=== PATIENT | male | born 1935 | race Hispanic/Latino ===

== ENCOUNTER 2018-12-20 10:08 | Inpatient (IN) | payer MEDICARE, MEDICAID ==
[2018-12-20] MEDS ORDERED: Morphine 4 MG/ML VIAL ONE ×2 (10:27→12:17)
[2018-12-20] MEDS ORDERED: Ondansetron PF 4 MG/2 ML Vial ONE (10:27)
[2018-12-20 10:41] LABS: #Monocytes 0.9 thou/uL (0.11-0.59); #Neutrophils 14.3 thou/uL (1.40-6.50); %Basophils 0.1 % (0.0-1.0); %Eosinophils 0.1 % (0.0-10.0); %Monocytes 5.2 % (0.0-10.0); %Neutrophils 88.6 % (42.0-75.0); Hemoglobin 14.1 g/dL (14.0-18.0); Mean Corpuscular HGB CONC 33.7 g/dL (32.0-36.0); Mean Corpuscular Hemoglobin 30.5 pg (27.0-31.0); Mean Corpuscular Volume 90.6 fL (78.0-98.0); Mean Platelet Volume 6.5 fL (7.4-10.4); Platelet Count 467 thou/uL (130-400); RBC Distribution Width 12.8 % (11.5-14.5); Red Blood Cell (RBC) Count 4.64 mill/uL (4.70-6.10); White Blood Cell (WBC) Count 16.1 thou/uL (4.8-10.8)
[2018-12-20 11:08] LABS: ALT (SGPT) 9 U/L (8-55); AST (SGOT) 23 U/L (5-34); Albumin 3.2 g/dL (3.4-4.8); Alkaline Phosphatase 107 U/L (40-150); Anion Gap 18 mmol/L (10-20); BUN (Urea Nitrogen) 88 mg/dL (8.4-25.7); Bilirubin, Total 0.5 mg/dL (0.2-1.2); Calc. Creatinine Clearance 0 mL/min (70-130); Calcium 9.7 mg/dL (7.8-10.44); Carbon Dioxide 23 mmol/L (23-31); Chloride 101 mmol/L (98-107); Estimated GFR-MDRD 22; Globulin 3.6 g/dL (2.4-3.5); Glucose 149 mg/dL (83-110); Lipase 76 U/L (8-78); Protein, Total 6.8 g/dL (5.8-8.1); Sodium 137 mmol/L (136-145)
--- NOTE | 2018-12-20 12:07 | CT ---
CT ABDOMEN WITHOUT CONTRAST: CT PELVIS WITHOUT CONTRAST: HISTORY: Rectal bleeding. COMPARISON: 12/04/2014 FINDINGS: ABDOMEN: Dependent atelectatic changes. Limited evaluation of the solid organs by the lack of IV co ntrast. Grossly no solid organ abnormality. Bilaterally no obstructive uropathy. Exophytic, simple cyst emanating from the posterior aspect of t he left kidney measuring 6.5 x 5.2 cm. 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 There is a mixed attenuation mass left lower quadrant, incompletely evaluated. Mass measures 14.8 x 10.3 cm. Etiology of this mass is uncertain. Absence of IV and oral contrast limits evaluation. No gastrohepatic, retrocrural, or periportal lymphadenopathy. There is complex perihepatic and peris plenic fluid. Complex fluid tracks along both paracolic gutters and is noted in the abdominal mesentery. Limited evaluation of the alimentary canal by the lack of contrast. No evidence of high- grade bowel obstruction. Ileocecal junction is normal. Suggestion of a normal caliber appendix of the cecal apex. Scattered diverticulosis. No diverticulitis. PELVIS: Prostate gland is unremarkable. There is mixed attenuation in the urinary bladder. There i s soft tissue attenuation along the posterior left aspect of the urinary bladder with calcification along the anterior right aspect of the urinary bladder. No pelvic mass, free air, or free fluid. No lytic or blastic lesions in the osseous structures. IMPRESSION: 1. Complex mass in the left hemiabdomen of uncertain etiology. There is complex fluid and thickenin g of the mesentery, suggesting mesenteric seeding/mesenteric carcinomatosis. 2. Calcification and isodensity within the urinary bladder, worrisome for a neoplastic process until proven otherwise. 3. Further evaluation with an abdomen and pelvis CT utilizing oral and IV contrast is recommended. Transcribed Date/Time: 12/20/2018 12:29 PM
[2018-12-20 12:42] LABS: Bilirubin Negative (Negative); Blood, Urine 2+ (Negative); Clarity Turbid (Clear); Glucose, Urine (Dipstick) Normal (Negative); Leukocyte 25 Leu/uL (Negative); Nitrite Negative (Negative); Protein, Urine (Dipstick) 50 mg/dL (Neg-Trace); RBC/HPF Greater than 50 HPF (0-3); Squamous Epithelial 0-3 HPF (0-3); Urobilinogen Normal mg/dL (Less than 2)
[2018-12-20] MEDS ORDERED: Ondansetron PF 4 MG/2 ML Vial IVP PRN (12:44)
[2018-12-20] MEDS ORDERED: Ondansetron ODT 4 MG TAB SL PRN (12:44)
[2018-12-20 12:49] LABS: Bacteria/HPF 3+ HPF (None Seen); Sperm/HPF Rare HPF (None Seen)
--- NOTE | 2018-12-20 12:58 | PDOC.FPRHP ---
- History of Present Illness Chief Complaint: Rectal bleeding, abdominal pain History of Present Illness: 83yo gentle with h/o throat cancer and DMII presents with c/c of rectal bleeding and abdominal pain x1 day. Reports first having blood in stool yesterday, mix of dark red and bright red in the stool as well as bright red blood on the toilet paper. He has had associated diarrhea over the past 24 hours as well as nausea and a few episodes of non-bloody vomiting. Endorses a burning pain per rectum with defication as well as a constant LLQ to suprapubic pain. He has had decreased PO intake due to his radiation for throat cancer, but has experience even more reduced PO intake over past few days. Denies CP, SOB, burning with urination or hesitation. Does endorse chronic urinary frequency. He is followed by Dr. Nunes for radiation for his throat cancer. Currently on day 19 of radiation. Diagnosed in 2019 per patient. ED Course: In he ED, he was afebrile and initially tachy to 114. HR decreased to 100 with 1L NS. Given 4mg morphine x2 for pain and Zofran 8mg IV for nausea with control of sxs. BCx and UCx were drawn. Type and screen, and initial labs taken. - Allergies/Adverse Reactions Allergies Allergy/AdvReac Type Severity Reaction Status Date / Time No Known Allergies Allergy Verified 12/04/14 03:14 - Home Medications Medication Instructions Recorded Confirmed Type Glimepiride 2 mg PO QAM- 12/04/14 12/20/18 History metFORMIN HCl 1,000 mg PO BID- 12/04/14 12/20/18 History - History PMHx: DMII, Throat Cancer - currently undergoing radiation therapy - Dr. Nunes PSHx: Cholecystectomy, Appendectomy, TURP/Prostate resection, Colonoscopy 5 years ago with polyp removal. FHx: Noncontributory. No Family history of cancers. Social: Smoked in 20s only for 2 years, denies any alcohol or illicit drug use. Lives in [place], [place] with . - Review of Systems General: reports: weight/appetite/sleep changes. denies: fever/chills, night sweats ENT: denies: nasal congestion, rhinorrhea Respiratory: denies: cough, shortness of breath, exercise intolerance Cardiovascular: denies: chest pain, palpitation, edema, paroxysmal nocturnal dyspnea, orthopnea Gastrointestinal: reports: nausea, vomiting, abdominal pain, GI bleeding. denies: constipation Genitourinary: denies: incontinence, dysuria, polyuria Skin: denies: rashes, lesions, jaundice Musculoskeletal: denies: pain, tenderness, stiffness Neurological: reports: other (Burning sensation of BL LE - chronic). denies: numbness, syncope, seizure Psychological: denies: anxiety, depression - Vital signs BP: [130/81] HR: [105] RR: [16] Tmax: [97.8] Pox: [97]% on [RA] Wt: [83kg] - Physical Exam Constitutional: NAD, awake, alert and oriented, well developed HEENT: EOMI, grossly normal vision, grossly normal hearing Neck: supple Heart: RRR, normal S1/S2, pulses present -Heart: 2/6 systolic ejection murmur - states this is has been present for many years Lungs: CTAB, no respiratory distress, good air movement, no rales/rhonchi, no wheezing -Abdomen: Large left abdominal mass taken up most of the left upper and lower quadrants. TTP along lower border of mass near LLQ/suprapubic region. Dullness to percussion over mass, but tympanic on right of abdomen. No fluid wave. Decreased bowel sounds throughout. Neurological: no focal deficit -Neurological: Neuropathic burning sensation in BL LE, chronic in nature. Skin: no rash/lesions Heme/Lymphatic: no unusual bruising or bleeding Psychiatric: normal mood and affect FMR H&P: Results - Labs Result Diagrams: 12/20/18 10:27 12/20/18 10:27 Lab results: WBC 16.1 thou/uL (4.8-10.8) H 12/20/18 10:27 Hgb 14.1 g/dL (14.0-18.0) 12/20/18 10:27 Hct 42.0 % (42.0-52.0) 12/20/18 10:27 MCV 90.6 fL (78.0-98.0) 12/20/18 10:27 Plt Count 467 thou/uL (130-400) H 12/20/18 10:27 Neutrophils % 88.6 % (42.0-75.0) H 12/20/18 10:27 Sodium 137 mmol/L (136-145) 12/20/18 10:27 Potassium 5.0 mmol/L (3.5-5.1) 12/20/18 10:27 Chloride 101 mmol/L (98-107) 12/20/18 10:27 Carbon Dioxide 23 mmol/L (23-31) 12/20/18 10:27 BUN 88 mg/dL (8.4-25.7) H 12/20/18 10:27 Creatinine 2.73 mg/dL (0.7-1.3) H 12/20/18 10:27 Glucose 149 mg/dL (83-110) H 12/20/18 10:27 Lactic Acid 3.8 mmol/L (0.5-2.2) H 12/20/18 10:27 Calcium 9.7 mg/dL (7.8-10.44) 12/20/18 10:27 Total Bilirubin 0.5 mg/dL (0.2-1.2) 12/20/18 10:27 AST 23 U/L (5-34) 12/20/18 10:27 ALT 9 U/L (8-55) 12/20/18 10:27 Alkaline Phosphatase 107 U/L (40-150) 12/20/18 10:27 B-Natriuretic Peptide 105.9 pg/mL (0-100) H 12/20/18 10:27 Serum Total Protein 6.8 g/dL (5.8-8.1) 12/20/18 10:27 Albumin 3.2 g/dL (3.4-4.8) L 12/20/18 10:27 Lipase 76 U/L (8-78) 12/20/18 10:27 Urine Ketones Negative mg/dL (Negative) 12/20/18 12:23 Urine Blood 2+ (Negative) A 12/20/18 12:23 Urine Nitrite Negative (Negative) 12/20/18 12:23 Ur Leukocyte Esterase 25 Hany/uL (Negative) 12/20/18 12:23 Urine RBC Greater than 50 HPF (0-3) A 12/20/18 12:23 Urine WBC 11-20 HPF (0-3) A 12/20/18 12:23 Ur Squamous Epith Cells 0-3 HPF (0-3) 12/20/18 12:23 Urine Bacteria 3+ HPF (None Seen) A 12/20/18 12:23 - Radiology Interpretation CT scan - abdomen Status: image reviewed by me, report reviewed by me (Large [id number] left abdominal complex mass. Complex fluid, suggestive mesenteric seeding. Calcificated mass in bladder concerning for neoplasm.) FMR H&P: A/P - Problem List (1) Abdominal mass Current Visit: No Status: Acute Code(s): R19.00 - INTRA-ABD AND PELVIC SWELLING, MASS AND LUMP, UNSP SITE Qualifiers: Abdominal location: left lower quadrant Qualified Code(s): R19.04 - Left lower quadrant abdominal swelling, mass and lump (2) LORRIE (acute kidney injury) Current Visit: No Status: Acute Code(s): N17.9 - ACUTE KIDNEY FAILURE, UNSPECIFIED (3) Diabetes Current Visit: No Status: Acute Code(s): E11.9 - TYPE 2 DIABETES MELLITUS WITHOUT COMPLICATIONS Qualifiers: Diabetes mellitus type: type 2 Diabetes mellitus termite exterminator helper insulin use: without fdc use Diabetes mellitus complication status: with neurologic complications Diabetes mellitus complication detail: with polyneuropathy Qualified Code(s): E11.42 - Type 2 diabetes mellitus with diabetic polyneuropathy (4) Melena Current Visit: No Status: Acute Code(s): K92.1 - MELENA (5) Hematochezia Current Visit: No Status: Acute Code(s): K92.1 - MELENA (6) Throat cancer Current Visit: No Status: Chronic Code(s): C14.0 - MALIGNANT NEOPLASM OF PHARYNX, UNSPECIFIED - Plan 83yo male with throat cancer undergoing radiation who presents with melena and hematochezia 1. Melena, hematochezia, Left abdominal mass - 1d history of melena, hematochezia, nausea, vomiting, diarrhea, and LLQ/ rectal pain - CT Abd/Pelvis - [id number] left hemiabdominal complex mass, Complex fluid and thickening of mesentery suggesting mesenteric seeding/carcinomatosis. - H/H and Vitals Stable. Will monitor. Repeat H/H at 2000 and again in AM - GI consulted from ED, place on clear liquids with bowel prep and NPO overnight. Plan for colonoscopy and EGD in AM, appreciate recs - Will consult Onc, appreciate recs - Consulted Palliative care for assistance with advance directives and goals of care, appreciate recs - Will provide morphine 4mg prn pain and zofran 8mg prn nausea 2. Bladder mass - CT Abd/Pelvis - Calcification and isodensity within urinary bladder, worrisome for neoplastic process - Pending GI evaluation and endoscopy in AM. Consider Urology consult if warranted. 3. LORRIE vs CKD - Cr was 0.82 in 2014, Cr 2.73, BUN 88. BUN/Cr >20, likely prerenal LORRIE - Provide gently hydration with LR @ 120cc/hr - Mg and Phos Pending. Recheck CMP in AM 4. Sepsis due to Suspected UTI - WBC 16, LA 3.8. Will Trend. - UA with 3+ Bacteria and 11-20 WBC. Will start Rocephin 1g q24h. - UCx and BCx Pending 3. DM II with peripheral neuropathy - Hold home metformin and glimepiride - Diabetic hyperglycemic protocol with Mild SS insulin and ACHS accuchecks. Will continue to monitor - Will start on Gabapentin 300mg BID for neuropathic pain 4. Throat Cancer - Tx by Dr. Nunes. Will consult Hem/Onc for further recs Diet: Clear liquids, NPO at midnight VTE: SCDs Code: Full. Spoke with pt regarding code status and goals of care. He wishes to be full code, but states he would "not want to live as a vegetable." Stated he should share these wishes with or designated a MPOA and place them in writing with advanced directive. Palliative Care consulted for assistance. Disposition/LOS: Admit to medical floor. Pending further workup by GI, Onc, and possibly urology. Monitor clinical status and kidney function. Anticipate hospitalization 3-5days. FMR H&P: Upper Level - Pertinent history I scribed for the information technology intern as the HPI was done. I made any edits as I saw fit above. - Pertinent findings Pt has large palpable left sided abdomen mass. - Plan Date/Time: 12/20/18 1258 I, [Rodrick Oseguera, PGY-3], have evaluated this patient and agree with findings/ plan as outlined by information technology intern resident. Pertinent changes/additions are listed here. -With signs of UTI infection. If lactic acid doesn't improve may consider intraabdominal process for infection and consider switch in abx regimen.
[2018-12-20] MEDS ORDERED: GoLYTELY 4,000 ml Bottle PO SCH (14:00)
[2018-12-20] MEDS ORDERED: Morphine 2 MG/ML SYRINGE SLOW IVP PRN (14:09)
[2018-12-20] MEDS ORDERED: Dextrose 5 % And 0.9 % NaCl 1,000 ML IV SCH (14:15)
[2018-12-20 14:17] VITALS: BMI 32.3
[2018-12-20 14:40] LABS: Lactic Acid 3.2 mmol/L (0.5-2.2)
[2018-12-20] MEDS ORDERED: Acetaminophen 325 MG TAB PO PRN (14:52)
[2018-12-20] MEDS ORDERED: Dextrose 50% Abboject 50 ML SYRINGE SLOW IVP PRN (14:52)
[2018-12-20] MEDS ORDERED: Dextrose 5% in Water 1,000 ML IV PRN (14:52)
[2018-12-20] MEDS ORDERED: HumaLOG 300 UNITS/3 ML VIAL SC PRN (14:52)
[2018-12-20] MEDS ORDERED: Ondansetron HCl/PF 8 MG in Sodium Chloride 0.9% 50 ML IVPB PRN (14:52)
[2018-12-20] MEDS ORDERED: Calcium Carbonate 500 MG ChewTAB PO PRN (14:52)
[2018-12-20 15:18] LABS: Magnesium 3.2 mg/dL (1.6-2.6); Phosphorus 6.1 mg/dL (2.3-4.7)
[2018-12-20] MEDS: cefTRIAXone\\ROCEPHIN 1 GM in Sodium Chloride 0.9% 100 ML IVPB SCH (15:27)
[2018-12-20] MEDS: Lactated Ringer's 1,000 ML IV SCH ×2 (15:27→23:31)
--- NOTE | 2018-12-20 16:16 | HP ---
I have examined the patient. I have discussed the case with Dr. Rk Garg and agreed with his assessment and plan. HISTORY OF PRESENT ILLNESS: Briefly, Mr. Coleman is a pleasant 83-year-old man with a history of "throat cancer." Yesterday, he noticed some bright red blood in a bowel movement. His bowel movement at that time was quite painful. He went to an outlying ER and eventually ended up here for further level of care. On physical exam, he is noted to have a very large left middle quadrant abdominal mass and slight degree of abdominal distention. He is in some discomfort, but not excruciating pain. Yesterday was the first time he had ever noticed blood in his bowel movements. He relates that he had a colonoscopy approximately five years ago with removal of "polyps." PHYSICAL EXAMINATION: VITAL SIGNS: His blood pressure is 124/73. His pulse rate is 105, respirations are 20. His O2 saturation is 94% on room air. GENERAL: He is sleepy, but otherwise in no distress. He does complain of some abdominal pain. He is oriented. HEAD: Normocephalic. NECK: Supple. CARDIAC: Heart rhythm is regular. S4 gallop. No murmur or rub noted. LUNGS: Breath sounds are diminished, but clear without rales or wheezes. He does not demonstrate any respiratory distress. ABDOMEN: Appears slightly distended. There is a large mass palpable in the left middle to left upper quadrant. There is no rebound or rigidity. EXTREMITIES: No focal deficits. LABORATORY DATA: Urinalysis shows greater than 50 rbc's per high-power field and 11 to 20 wbc's. CBC; white count is 16,100, hemoglobin 14.1, hematocrit 42.0 with an MCV of 90.6, platelets elevated at 467,000 and differential is normal with a slight left shift. Chemistries; sodium 137, potassium 5, chloride 101, bicarb 23, BUN is 88 with creatinine of 2.73, glucose is 149. Lactic acid is 3.8. Liver enzymes are normal. The abdominal pelvic CT done without contrast demonstrates a complex mass in the left niurka-abdomen of uncertain etiology. There is complex fluid and thickening of the mesentery suggesting mesenteric seeding and mesenteric carcinomatosis. There is also calcification and isodensity in the urinary bladder, which is worrisome for a neoplastic process. ASSESSMENT: The patient has also been seen by the GI Service and we will schedule him for colonoscopy tomorrow. He may eventually need cystoscopy as well. PLAN: Admit, IV fluids, pain control. Further studies as mentioned above. This is likely a colon malignancy with possibly a neoplastic process as well in the bladder. Job ID: [id number]
[2018-12-20] MEDS: Gabapentin 300 MG CAP PO SCH (19:44)
--- NOTE | 2018-12-20 19:48 | CON ---
DATE OF CONSULTATION: 12/20/2018 REASON FOR CONSULTATION: Hematochezia, abnormal GI imaging. CONSULTING PHYSICIAN: Dr. Breonna Rae. HISTORY OF PRESENT ILLNESS: The patient is an 83-year-old male with past medical history of throat cancer, status post radiation therapy, benign prostatic hyperplasia, and diabetes, presenting with complaints of abdominal pain. He states that he was recently being evaluated for his throat cancer and had undergone approximately 9 cycles of radiation therapy per Dr. Nunes as an outpatient. However, yesterday, he developed increased left lower quadrant abdominal pain that he characterized as a burning type sensation, would radiate to the suprapubic region, was constant with waxing/waning severity, and reached a severity of 6 to 7/10. The pain was worse with bending over and having a bowel movement, better with inactivity or not moving. This was also associated with increased diarrhea, having approximately 5 liquid bowel movements over the last 24 hours without any difficulty with defecation. With the onset of the liquid bowel movements, he also endorses hematochezia, characterized as maroon-colored stool that is present on both the toilet paper and in the toilet. This is never happened before, but he did have a colonoscopy approximately 5 years ago with polyps removed at that time (unknown size and histology). He also currently endorses increased dysphagia, primarily to solid foods, but in relation to his throat cancer. Otherwise, he denies any nausea, vomiting, fevers, chills, hematemesis, melena, odynophagia, or weight loss. REVIEW OF SYSTEMS: A 10-category review of systems was obtained with all responses negative except for the pertinent positives as listed in HPI. PAST MEDICAL HISTORY: As per HPI. PAST SURGICAL HISTORY: Colonoscopy (5 years ago), cholecystectomy, appendectomy, and TURP. FAMILY HISTORY: Denies any GI malignancies. SOCIAL HISTORY: Currently, denies any tobacco, alcohol, or illicit drug use. Did have increased tobacco and alcohol use in the past, greater than 20 years ago. MEDICATIONS: Outpatient medications, reviewed. ALLERGIES: NO KNOWN DRUG ALLERGIES. PHYSICAL EXAMINATION: VITAL SIGNS: Temperature 97.8, pulse 105, blood pressure 130/81, respiratory rate 16, saturating 97% on room air. GENERAL: The patient is lying in bed, in no acute distress, alert and oriented x4. HEENT: Normocephalic and atraumatic. NECK: Supple. No JVD or scleral icterus noted. Hoarseness of voice noted during the examination. CARDIOVASCULAR: 3/6 systolic murmur best heard at the right upper sternal border, but present in all auscultated cardiac negro without discernible gallops or rubs. RESPIRATORY: Clear to auscultation bilaterally with no discernible wheezes or rales. ABDOMEN: Normoactive bowel sounds. Soft on the right niurka abdomen, but a dense mass was palpated on the left niurka abdomen occupying primarily the left upper quadrant and left mid. EXTREMITIES: No cyanosis, clubbing, or edema. LABORATORY DATA: CBC with a white blood cell count of 16.1, hemoglobin 14.1, hematocrit 42, platelets 467. Chemistry with a sodium of 137, potassium 5, chloride 101, CO2 of 23, BUN 88, creatinine 2.73, glucose 149, AST 23, ALT 9, alkaline phosphatase 107, total bilirubin 0.5, lactic acid 3.8, BNP 105, albumin 3.2. IMAGING DATA: CT of the abdomen and pelvis was obtained on December 20, 2018, which showed evidence of edema with omental caking that was associated with a 14.8 x 10.3 cm left lower quadrant mass. There was also perihepatic and perisplenic fluid noted along with a large calcification within the urinary bladder concerning for neoplasm. ASSESSMENT AND PLAN: The patient is an 83-year-old male with past medical history of head/neck cancer status post radiation therapy, benign prostatic hyperplasia, diabetes, and colonic polyps, presenting with left lower quadrant abdominal pain and abnormal imaging concerning for neoplastic process. 1. Left lower quadrant abdominal pain. a. The patient is presenting with acute onset of left lower quadrant abdominal pain characterized as a burning-type sensation and radiating into the suprapubic region. The pain is constant with waxing/waning severity and reaches a severity of 6 to 7/10. With worsening of this abdominal pain, it prompted him to seek healthcare assistance at [facility] ER. While in the ER, he had a CT scan, which showed a large mass within the left mid and left lower quadrant concerning for neoplastic process. However, further characterization of the mass could not be performed due to the lack of IV or oral contrast during the imaging study secondary to the patient's poor renal function. During the CT scan, he was also noted to have a large calcification within the urinary bladder concerning for neoplastic process from that region. At this point in time, the differential could include a colonic primary neoplasm, bladder primary neoplasm, soft tissue sarcoma, densely packed scar tissue (much less likely). RECOMMENDATIONS: 1. We will place the patient on a clear liquid diet today with GoLYTELY prep in anticipation for EGD and colonoscopy tomorrow. 2. We will proceed with both EGD and colonoscopy for intraluminal evaluation of the upper GI tract that might be contributing to his maroon-colored stools. Colonoscopy would give intraluminal evaluation for possible colonic neoplasm. 3. We will continue to trend hemoglobin and hematocrit and transfuse as necessary to maintain a hemoglobin and hematocrit of 7/21. 4. We will continue to monitor clinically for signs of active GI bleeding. 5. Further recommendations to follow endoscopy tomorrow. We will continue to follow. Please call with any questions. Job ID: [id number]
[2018-12-21 01:06] LABS: Lactic Acid 2.8 mmol/L (0.5-2.2)
--- NOTE | 2018-12-21 05:45 | PDOC.FM ---
- Subjective Subjective: Pt doing well this morning, no acute events overnight. Pain much improved with gabapentin per patient, he was able to rest well overnight. Tolerating the GI prep and having multiple watery, loose stools this morning. No melena or hematochezia. No pain with defecation or urination. Still endorses LLQ soreness and has to lie on his left side to alleviate the pain. Denies CP, SOB, fever/ chills. Mild nausea but no vomiting. Anticipating endoscopy today. Spoke with and awaiting Palliative care team to assist in advanced directives. - Objective MAR Reviewed: Yes Vital Signs & Weight: Vital Signs (12 hours) Temp Pulse Resp BP Pulse Ox 12/21/18 04:00 97.8 F 101 H 20 129/80 92 L 12/21/18 00:00 97.7 F 98 20 128/82 95 12/20/18 21:25 94 L 12/20/18 20:00 97.6 F 102 H 23 H 113/68 94 L Weight Weight 80.286 kg I&O: 12/19/18 12/20/18 12/21/18 06:59 06:59 06:59 Intake Total 360 Balance 360 Result Diagrams: 12/21/18 09:55 12/21/18 09:55 Phys Exam - Physical Examination Constitutional: NAD (lying on left side to avoid pain.) HEENT: moist MMs horseness Neck: no nodes, supple Respiratory: no wheezing, no rales, no rhonchi, clear to auscultation bilateral Cardiovascular: RRR, no rub 2/6 systolic ejection murmur Gastrointestinal: positive bowel sounds Large hard mass left abdomen, mild TTP of lower mass border. Distented Musculoskeletal: no edema Neurological: non-focal, moves all 4 limbs Psychiatric: normal affect, A&O x 3 Dx/Plan (1) Abdominal mass Code(s): R19.00 - INTRA-ABD AND PELVIC SWELLING, MASS AND LUMP, UNSP SITE Status: Acute Qualifiers: Abdominal location: left lower quadrant Qualified Code(s): R19.04 - Left lower quadrant abdominal swelling, mass and lump (2) LORRIE (acute kidney injury) Code(s): N17.9 - ACUTE KIDNEY FAILURE, UNSPECIFIED Status: Acute (3) Diabetes Code(s): E11.9 - TYPE 2 DIABETES MELLITUS WITHOUT COMPLICATIONS Status: Acute Qualifiers: Diabetes mellitus type: type 2 Diabetes mellitus fci insulin use: without fci use Diabetes mellitus complication status: with neurologic complications Diabetes mellitus complication detail: with polyneuropathy Qualified Code(s): E11.42 - Type 2 diabetes mellitus with diabetic polyneuropathy (4) Melena Code(s): K92.1 - MELENA Status: Acute (5) Hematochezia Code(s): K92.1 - MELENA Status: Acute (6) Throat cancer Code(s): C14.0 - MALIGNANT NEOPLASM OF PHARYNX, UNSPECIFIED Status: Chronic (7) Hypermagnesemia Code(s): E83.41 - HYPERMAGNESEMIA Status: Acute (8) Hyperphosphatemia Code(s): E83.39 - OTHER DISORDERS OF PHOSPHORUS METABOLISM Status: Acute - Plan Plan: 83yo male with throat cancer undergoing radiation who presents with melena and hematochezia found to have multiple abdominal and pelvic masses concerning for malignancy. 1. Large left abdominal mass, mesenteric seeding, and bladder calcification concerning for malignancy - 1d history of melena, hematochezia, nausea, vomiting, diarrhea, and LLQ/ rectal pain - CT Abd/Pelvis - [id number] left hemiabdominal complex mass, Complex fluid and thickening of mesentery suggesting mesenteric seeding/carcinomatosis. - VSS. Hb 14 -> 13.2 - GI consulted, Dr. Estrada, place on clear liquids with bowel prep and NPO. Plan for colonoscopy and EGD this morning, appreciate recs - Onc consulted, Dr. Farris, rec continued GI workup and possible urology consult for cysto and bladder mass biopsy, will follow along, appreciate recs - Consulted Palliative care for assistance with advance directives and goals of care, appreciate recs - Morphine 4mg prn pain and zofran 8mg prn nausea 2. Bladder mass - CT Abd/Pelvis - Calcification and isodensity within urinary bladder, worrisome for neoplastic process - Pending GI evaluation and endoscopy in this morning. Consider Urology consult. 3. LORRIE vs CKD - Cr was 0.82 in 2014, Cr 2.73, BUN 88. BUN/Cr >20, likely prerenal LORRIE. CMP pending this AM. - Providing gently hydration with LR @ 120cc/hr - Mg 3.2, Phos 6.1. Will check EKG. - Trend lytes daily 4. Sepsis due to Suspected UTI - WBC 16 -> 12.8, LA 3.8 -> 2.8. - UA with 3+ Bacteria and 11-20 WBC. Rocephin 1g q24h Day 2. - UCx and BCx Pending 3. DM II with peripheral neuropathy - Hold home metformin and glimepiride - Diabetic hyperglycemic protocol with Mild SS insulin and ACHS accuchecks. BG stable, will continue to monitor. - Gabapentin 300mg BID for neuropathic pain. Pain much improved. 4. Throat Cancer - Tx by Dr. Nunes.Hem/Onc on board, appreciate recs. Diet: NPO for endoscopy today VTE: SCDs Code: Full. Spoke with pt regarding code status and goals of care. He wishes to be full code, but states he would "not want to live as a vegetable." Stated he should share these wishes with or designated a MPOA and place in writing with advanced directive. Palliative Care consulted for assistance. Disposition/LOS: Pending further workup by GI, Onc, and possibly urology. Monitor clinical status and renal function. Anticipate hospitalization 3-5days.
[2018-12-21] MEDS: Lactated Ringer's 1,000 ML IV SCH ×3 (06:52→22:39)
[2018-12-21] MEDS: Gabapentin 300 MG CAP PO SCH ×2 (08:50→20:27)
[2018-12-21 10:12] LABS: #Lymphocytes 0.9 thou/uL (1.20-3.40); #Monocytes 0.8 thou/uL (0.11-0.59); #Neutrophils 11.2 thou/uL (1.40-6.50); %Basophils 0.1 % (0.0-1.0); %Eosinophils 0.1 % (0.0-10.0); %Lymphocytes 6.7 % (21.0-51.0); %Monocytes 5.9 % (0.0-10.0); %Neutrophils 87.2 % (42.0-75.0); Hemoglobin 13.2 g/dL (14.0-18.0); Mean Corpuscular Hemoglobin 30.3 pg (27.0-31.0); Mean Corpuscular Volume 91.7 fL (78.0-98.0); Mean Platelet Volume 6.4 fL (7.4-10.4); Platelet Count 409 thou/uL (130-400); RBC Distribution Width 12.9 % (11.5-14.5); Red Blood Cell (RBC) Count 4.35 mill/uL (4.70-6.10); White Blood Cell (WBC) Count 12.8 thou/uL (4.8-10.8)
[2018-12-21 10:36] LABS: ALT (SGPT) 8 U/L (8-55); AST (SGOT) 30 U/L (5-34); Albumin 2.7 g/dL (3.4-4.8); Alkaline Phosphatase 101 U/L (40-150); Anion Gap 19 mmol/L (10-20); BUN (Urea Nitrogen) 81 mg/dL (8.4-25.7); Bilirubin, Total 0.3 mg/dL (0.2-1.2); Calc. Creatinine Clearance 32 mL/min (70-130); Calcium 8.9 mg/dL (7.8-10.44); Carbon Dioxide 19 mmol/L (23-31); Chloride 104 mmol/L (98-107); Estimated GFR-MDRD 32; Globulin 3.1 g/dL (2.4-3.5); Glucose 94 mg/dL (83-110); Potassium 4.4 mmol/L (3.5-5.1); Protein, Total 5.8 g/dL (5.8-8.1); Sodium 138 mmol/L (136-145)
--- NOTE | 2018-12-21 11:22 | PRG ---
DATE OF SERVICE: 12/21/2018 Mr. Coleman is sitting up in bed, undergoing a prep for colonoscopy. He is cheerful, awake, alert, in no distress. He has been seen in consultation by the GI Service. Their recommendations were to prep the patient for EGD and colonoscopy, which hopefully will be done today. EGD performed to evaluate his maroon-colored stools. Colonoscopy of course is recommended for possible colonic neoplasm, which is palpable on physical exam. We will continue to follow with the GI Service and appreciate their input. Job ID: [id number]
[2018-12-21] MEDS ORDERED: Lidocaine 1% PF 5 ML VIAL ONE (11:23)
[2018-12-21] MEDS ORDERED: PROPOFOL 200 MG/20 ML VIAL ONE (11:23)
[2018-12-21] MEDS: cefTRIAXone\\ROCEPHIN 1 GM in Sodium Chloride 0.9% 100 ML IVPB SCH (14:43)
[2018-12-21] MEDS: Morphine 4 MG/ML VIAL SLOW IVP PRN (16:29)
--- NOTE | 2018-12-21 20:43 | OP ---
DATE OF PROCEDURE: 12/21/2018 PROCEDURES PERFORMED: Esophagogastroduodenoscopy with biopsy, colonoscopy with polypectomy. INDICATIONS FOR PROCEDURE: Abnormal GI imaging with a large abdominal mass in the left upper and left lower quadrant, hematochezia. DESCRIPTION OF PROCEDURE: After the risks and benefits of the procedures were explained to the patient including risks of bleeding, infection, perforation, reactions to anesthesia, aspiration, and/or pain, informed consent was obtained. The patient was then taken to the endoscopy suite, where deep sedation was administered via propofol and anesthesia support. Once adequate sedation was achieved, the patient was maneuvered into the left lateral decubitus position with introduction of the standard gastroscope into the mouth and intubation of the esophagus, stomach, and the proximal small intestines with the findings listed below. The patient tolerated this portion of the procedure well with no immediate perioperative complications. Upon conclusion of the procedure, all equipment was removed from the patient and the bed was rotated 180 degrees in anticipation of the colonoscopy. After a digital rectal examination was performed, the standard colonoscope was introduced into the rectum and advanced to the cecum without difficulty. The quality of the prep was initially fair, but converted to a good prep with aggressive irrigation and suctioning. Adequate visualization of the colonic mucosa was achieved. The patient tolerated the procedure well with no immediate perioperative complications. Upon conclusion of the procedure, all equipment was removed from the patient and he was transferred to PACU in satisfactory condition. EGD FINDINGS: Esophagus: Normal-appearing mucosa was seen in the proximal and mid esophagus. There was increased hyperemia as well as some mild luminal narrowing of the gastroesophageal junction without any overt esophageal stricture present. Multiple biopsies were taken from the distal esophagus for evaluation of this finding. Otherwise, there was no evidence of erosions, ulcerations, mass, lesions, or active/recent bleeding. Stomach: Normal-appearing mucosa was seen in the gastric cardia, fundus, body, greater curvature, antrum, and incisura. There was no evidence of erosions, ulcerations, mass, lesions, or active/recent bleeding. Duodenum: Normal-appearing mucosa was seen in both the duodenal bulb and second portion of the duodenum. There was no evidence of erosions, ulcerations, mass, lesions, or active/recent bleeding. IMPRESSION: 1. Mild hyperemia and mild luminal narrowing without stricture formation in the distal esophagus concerning for reflux disease. 2. Otherwise, normal upper endoscopy. COLONOSCOPY FINDINGS: Digital rectal exam, large external hemorrhoids were seen on external examination with the appearance of overlying erythema and a small blood clot overlying one of the larger hemorrhoids. Internal hemorrhoids were palpated on digital rectal exam, but no masses felt. No active bleeding was seen during this portion. COLON FINDINGS: Normal-appearing mucosa was seen at the ileocecal valve, appendiceal orifice, and within the cecum itself. A 5 mm sessile polyp was seen in the ascending colon and completely removed with snare cautery polypectomy. It was retrieved and placed in a specimen jar for evaluation. Normal-appearing mucosa was then seen in the transverse colon and proximal descending colon at approximately 40 to 50 cm past the anal verge. Mild luminal narrowing was encountered, but was easily traversed with the colonoscope. There was no associated erythema or stricture formation or evidence of malignancy in this region. Normal-appearing mucosa was then seen in the sigmoid colon and rectum. Medium-sized internal hemorrhoids were seen on rectal retroflexion. IMPRESSION: 1. 5 mm ascending colon polyp, status post snare cautery polypectomy. 2. Mild luminal narrowing at 40 to 50 cm past the anal verge consistent with extrinsic compression of the colon. 3. Medium-sized internal hemorrhoids and large external hemorrhoids with evidence of recent bleeding (most likely reason for the patient's recent hematochezia). RECOMMENDATIONS: 1. Would ultimately recommend a higher fiber diet given his evidence of bleeding hemorrhoids, although I would hold on this for now given the evidence of extrinsic compression from the abdominal mass. 2. Would consider hemorrhoid cream for these large external hemorrhoids in the meantime. 3. We will consider consultation of General Surgery or Urology Service for further evaluation of possible intra-abdominal malignancy versus bladder malignancy. 4. We will follow up on the biopsy results. Given the lack of obvious intraluminal findings in light of a large abdominal mass, we will sign off at this time given that we have nothing else to offer. Please call with any questions. Job ID: [id number]
--- NOTE | 2018-12-22 05:49 | PDOC.FM ---
- Subjective Subjective: Pt doing well this morning. States he is hungry and thirsty, but is NPO for possible mass biopsy. States abdominal pressure/pain is worse when lying on back and lies on side for relief. No n/v/d/c. No return of melena or hematochezia. Eager for further workup. - Objective MAR Reviewed: Yes Vital Signs & Weight: Vital Signs (12 hours) Temp Pulse Resp BP Pulse Ox 12/22/18 04:00 97.8 F 105 H 16 114/77 94 L 12/21/18 21:19 99 12/21/18 20:00 98.2 F 108 H 16 108/63 99 Weight Weight 80.286 kg I&O: 12/20/18 12/21/18 12/22/18 06:59 06:59 06:59 Intake Total 360 4680 Balance 360 4680 Result Diagrams: 12/22/18 06:18 12/22/18 06:18 Phys Exam - Physical Examination Constitutional: NAD horseness Neck: supple Respiratory: no wheezing, no rales, no rhonchi, clear to auscultation bilateral Cardiovascular: RRR, no rub 2/3 systolic ejection murmur Gastrointestinal: positive bowel sounds hard left abdominal mass, midly TTP along lower border. Musculoskeletal: no edema Neurological: non-focal, moves all 4 limbs Psychiatric: A&O x 3 Dx/Plan (1) Abdominal mass Code(s): R19.00 - INTRA-ABD AND PELVIC SWELLING, MASS AND LUMP, UNSP SITE Status: Acute Qualifiers: Abdominal location: left lower quadrant Qualified Code(s): R19.04 - Left lower quadrant abdominal swelling, mass and lump (2) LORRIE (acute kidney injury) Code(s): N17.9 - ACUTE KIDNEY FAILURE, UNSPECIFIED Status: Acute (3) Diabetes Code(s): E11.9 - TYPE 2 DIABETES MELLITUS WITHOUT COMPLICATIONS Status: Acute Qualifiers: Diabetes mellitus type: type 2 Diabetes mellitus detention insulin use: without detention use Diabetes mellitus complication status: with neurologic complications Diabetes mellitus complication detail: with polyneuropathy Qualified Code(s): E11.42 - Type 2 diabetes mellitus with diabetic polyneuropathy (4) Melena Code(s): K92.1 - MELENA Status: Acute (5) Hematochezia Code(s): K92.1 - MELENA Status: Acute (6) Throat cancer Code(s): C14.0 - MALIGNANT NEOPLASM OF PHARYNX, UNSPECIFIED Status: Chronic (7) Hypermagnesemia Code(s): E83.41 - HYPERMAGNESEMIA Status: Acute (8) Hyperphosphatemia Code(s): E83.39 - OTHER DISORDERS OF PHOSPHORUS METABOLISM Status: Acute - Plan Plan: 83yo male with throat cancer undergoing radiation who presents with melena and hematochezia found to have multiple abdominal and pelvic masses concerning for malignancy. 1. Large left abdominal mass, mesenteric seeding, and bladder calcification concerning for malignancy - 1d history of melena, hematochezia, nausea, vomiting, diarrhea, and LLQ/ rectal pain - CT Abd/Pelvis - [id number] left hemiabdominal complex mass, Complex fluid and thickening of mesentery suggesting mesenteric seeding/carcinomatosis. - VSS. Hb stable. - GI consulted, Dr. Estrada, EGD narrowing of GE junction biopsies taken otherwise normal. [place] 5mm polpy, extensive compression of colon, internal and external hemorrhoids likely source of hematochezia; rec gen surg vs urology for further malignancy work up, appreciate recs - Onc consulted, Dr. Farris, rec continued GI workup and possible urology consult for cysto and bladder mass biopsy, will follow along, appreciate recs - Consulted Palliative care for assistance with advance directives and goals of care, appreciate recs - Morphine 4mg prn pain and zofran 8mg prn nausea - Consulted Gen surg, Dr. Wild who rec IR with CT guided biopsy, spoke with Dr. Rosales and plan for biopsy today. 2. Bladder mass - CT Abd/Pelvis - Calcification and isodensity within urinary bladder, worrisome for neoplastic process - Will consult urology 3. LORRIE vs CKD - Cr was 0.82 in 2015, Cr 2.73 -> 1.83, BUN 88. BUN/Cr >20, likely prerenal LORRIE. - Providing gently hydration with LR @ 120cc/hr - Mg 3.2, Phos 6.1. EKG normal. - Trend lytes daily 4. Sepsis due to Suspected UTI - WBC 16 -> 12.8, LA 3.8 -> 2.8. - UA with 3+ Bacteria and 11-20 WBC. Rocephin 1g q24h Day 3. Willie d/c rocephin. - No UCx obtained, BCx NGTD. 3. DM II with peripheral neuropathy - Hold home metformin and glimepiride - Diabetic hyperglycemic protocol with Mild SS insulin and ACHS accuchecks. BG stable, will continue to monitor. - Gabapentin 300mg BID for neuropathic pain. Pain much improved. 4. Throat Cancer - Tx by Dr. Nunes.Hem/Onc on board, appreciate recs. Notified cancer center of patient being inpt. Diet: NPO for endoscopy today VTE: SCDs Code: Full. Spoke with pt regarding code status and goals of care. He wishes to be full code, but states he would "not want to live as a vegetable." Stated he should share these wishes with or designated a MPOA and place in writing with advanced directive. Palliative Care consulted for assistance. Disposition/LOS: Pending further malignancy workup. Monitor clinical status and renal function. Anticipate hospitalization 3-5days. Addendum - Attending - Attending Attestation Date/Time: 12/22/182013 I personally evaluated the patient and discussed the management with Dr. Katherin Garg at 0940. I agree with the History, Examination, Assessment and Plan documented above with any addition or exceptions noted below. Large abdominal mass- IR guided biopsy of mass. Tachycardia- mild and sinus.continue to monitor LORRIE- improving daily with IVF Bladder calcification- will get urology input as well.
[2018-12-22 07:13] LABS: #Eosinphils 0.1 thou/uL (0.0-0.7); #Lymphocytes 0.7 thou/uL (1.20-3.40); #Monocytes 0.8 thou/uL (0.11-0.59); #Neutrophils 10.7 thou/uL (1.40-6.50); %Basophils 0.2 % (0.0-1.0); %Eosinophils 0.4 % (0.0-10.0); %Lymphocytes 5.6 % (21.0-51.0); %Monocytes 6.3 % (0.0-10.0); %Neutrophils 87.4 % (42.0-75.0); Hemoglobin 12.9 g/dL (14.0-18.0); Mean Corpuscular HGB CONC 32.3 g/dL (32.0-36.0); Mean Corpuscular Hemoglobin 29.4 pg (27.0-31.0); Mean Corpuscular Volume 91.2 fL (78.0-98.0); Mean Platelet Volume 6.8 fL (7.4-10.4); Platelet Count 376 thou/uL (130-400); RBC Distribution Width 13.1 % (11.5-14.5); Red Blood Cell (RBC) Count 4.38 mill/uL (4.70-6.10); White Blood Cell (WBC) Count 12.3 thou/uL (4.8-10.8)
[2018-12-22 07:29] LABS: ALT (SGPT) 10 U/L (8-55); AST (SGOT) 26 U/L (5-34); Albumin 2.6 g/dL (3.4-4.8); Alkaline Phosphatase 96 U/L (40-150); Anion Gap 16 mmol/L (10-20); BUN (Urea Nitrogen) 80 mg/dL (8.4-25.7); Bilirubin, Total 0.4 mg/dL (0.2-1.2); Calc. Creatinine Clearance 35 mL/min (70-130); Calcium 8.9 mg/dL (7.8-10.44); Carbon Dioxide 21 mmol/L (23-31); Chloride 103 mmol/L (98-107); Estimated GFR-MDRD 36; Globulin 2.9 g/dL (2.4-3.5); Glucose 113 mg/dL (83-110); Magnesium 2.5 mg/dL (1.6-2.6); Phosphorus 5.2 mg/dL (2.3-4.7); Potassium 4.5 mmol/L (3.5-5.1); Protein, Total 5.5 g/dL (5.8-8.1); Sodium 135 mmol/L (136-145)
[2018-12-22] MEDS: Lactated Ringer's 1,000 ML IV SCH ×2 (07:49→16:48)
[2018-12-22] MEDS: Gabapentin 300 MG CAP PO SCH ×2 (07:49→21:35)
[2018-12-22 12:22] LABS: INR-International Normal Ratio 1.3; PTT 36.8 SEC (22.9-36.1); Prothrombin Time 15.8 SEC (12.0-14.7)
[2018-12-22] MEDS: Morphine 4 MG/ML VIAL SLOW IVP PRN ×2 (12:27→18:17)
[2018-12-22] MEDS ORDERED: Midazolam HCl 2 mg/2 ml Vial ONE (13:24)
[2018-12-22] MEDS ORDERED: Sodium Bicarbonate 2.5 MEQ/5 ML VIAL ONE (13:24)
[2018-12-22] MEDS ORDERED: Fentanyl 100 MCG/2 ML VIAL ONE (13:24)
--- NOTE | 2018-12-22 14:36 | CT ---
CT-guided biopsy left lower quadrant mass HISTORY: Carcinomatosis. Abdominal mass. FINDINGS: After explaining the procedure and answering all questions, limited CT imaging of the abdom en was performed. Sterile technique, buffered local anesthesia, CT guidance, and a left lower quadrant approach were advance a 17-gauge needle into the large heterogeneous mass in the left side o f the abdomen. At least 4 18-gauge core biopsy specimens were obtained and submitted to Dr. Jerez from pathology. Sp ecimen adequacy was confirmed. Needle removed. Postprocedure imaging shows no evidence of complication. Patient tolerated the procedure well and was returned in unchanged condition. IMPRESSION: Technically successful CT-guided biopsy left abdominal mass. Pathology is pending.
[2018-12-22] MEDS ORDERED: Acetaminophen 500 MG TAB PO PRN (15:15)
--- NOTE | 2018-12-22 18:45 | PDOC.GSCN ---
Surgery Consult: [facility] - Consult details Date: 12/22/18 Time: 18:00 Reason for consult: other (Abdominal mass) Requesting physician: Rk Garg History of present illness: 83 yo male presented to [facility] with a cc of BRBPR and dysphagia. Pt has a history of throat cancer currently undergoing radiation. CT scan on admission demonstrated a large complex left sided abdominal mass. He was admitted by the family medicine team for further evaluation and treatment. He was seen and evaluated by GI and underwent EGD w/biopsy and colonoscopy with polypectomy. Pathology currently pending. Our team was consulted for the abdominal mass and advised CT guided biopsy. Upon my evaluation this evening the patient has undergone biopsy with IR, he is eating dinner and complains of nausea, dysphagia and poor appetite. Pt reports his last BM was 5 hrs ago and described as loose watery stool with dark/old blood when he wiped. He has had a 12lb weight loss over the last four weeks. Surgery Consult: [facility] Source: patient, family Past Medical History: DMII, throat cancer Past Surgical History: Cholecystectomy, appendectomy, TURP, colonoscopy with polypectomy x2 - Past Family History Family history: reviewed and not pertinent - Past Social History Smoking Status: Former smoker Alcohol Use: pt denies any use Drug Use History: pt denies any use Living Situation: Surgery Consult: Exam - Vital signs Vital signs: Vital Signs - Most Recent Temp Pulse Resp BP Pulse Ox 97.8 F 107 H 18 114/69 98 12/22/18 08:00 12/22/18 08:00 12/22/18 08:00 12/22/18 08:00 12/22/18 08:00 - Physical Exam General: no distress, other (Sitting on edge of bed eating) Eye: PERRL Neck: trachea midline Respiratory: clear to auscultation, normal expansion, normal respiratory effort Abdomen: other (abdomen is rotund and mildly firm, nontender no guarding or rigidity, dull to percussion) Hernia: none Integumentary: no rash Musculoskeletal: other (luis x 4) Psychiatric: oriented to time, oriented to person, oriented to place Additional exam: Cardiovascular: RRR 2/6 VENECIA, 2+ pitting edema BLE Surgery Consult: Meds - Medications MAR Reviewed: Yes Medications: Current Medications Acetaminophen (Tylenol) 1,000 mg PO Q4H PRN PRN Reason: Headache/Fever/Mild Pain (1-3) Calcium Carbonate (Tums) 1,000 mg PO Q4H PRN PRN Reason: Heartburn or Indigestion Last Admin: 12/22/18 02:32 Dose: 1,000 mg Dextrose/Water (Dextrose 50%) 25 gm SLOW IVP PRN PRN PRN Reason: Hypoglycemia Gabapentin (Neurontin) 300 mg PO BID [facility] Last Admin: 12/22/18 07:49 Dose: 300 mg Glucagon (Glucagon) 1 mg IM PRN PRN PRN Reason: Hypoglycemia Dextrose/Water (D5w) 1,000 mls @ 0 mls/hr IV .Q0M PRN PRN Reason: Hypoglycemia Lactated Ringer's (Lactated Ringer's) 1,000 mls @ 120 mls/hr IV .Q8H20M [facility] Last Admin: 12/22/18 16:48 Dose: 1,000 mls Ondansetron HCl 8 mg/ Sodium (Chloride) 54 mls @ 200 mls/hr IVPB Q8H PRN PRN Reason: Nausea/Vomiting Insulin Human Lispro (Humalog) 0 units SC .MILD SLIDING SCALE PRN PRN Reason: Mild Correctional Scale Morphine Sulfate (Morphine) 4 mg SLOW IVP Q4H PRN PRN Reason: Severe Pain (7-10) Last Admin: 12/22/18 18:17 Dose: 4 mg Sodium Chloride (Flush - Normal Saline) 10 ml IVF PRN PRN PRN Reason: Saline Flush - Allergies Allergies/Adverse Reactions: Allergies Allergy/AdvReac Type Severity Reaction Status Date / Time No Known Allergies Allergy Verified 12/04/14 03:14 Surgery Consult: Results - Labs Result Diagrams: 12/22/18 06:18 12/22/18 06:18 Lab results: Laboratory Results WBC 12.3 thou/uL (4.8-10.8) H 12/22/18 06:18 RBC 4.38 mill/uL (4.70-6.10) L 12/22/18 06:18 Hgb 12.9 g/dL (14.0-18.0) L 12/22/18 06:18 Hct 39.9 % (42.0-52.0) L 12/22/18 06:18 MCV 91.2 fL (78.0-98.0) 12/22/18 06:18 MCH 29.4 pg (27.0-31.0) 12/22/18 06:18 MCHC 32.3 g/dL (32.0-36.0) 12/22/18 06:18 RDW 13.1 % (11.5-14.5) 12/22/18 06:18 Plt Count 376 thou/uL (130-400) 12/22/18 06:18 MPV 6.8 fL (7.4-10.4) L 12/22/18 06:18 Neutrophils % 87.4 % (42.0-75.0) H 12/22/18 06:18 Lymphocytes % 5.6 % (21.0-51.0) L 12/22/18 06:18 Monocytes % 6.3 % (0.0-10.0) 12/22/18 06:18 Eosinophils % 0.4 % (0.0-10.0) 12/22/18 06:18 Basophils % 0.2 % (0.0-1.0) 12/22/18 06:18 Neutrophils # 10.7 thou/uL (1.40-6.50) H 12/22/18 06:18 Lymphocytes # 0.7 thou/uL (1.20-3.40) L 12/22/18 06:18 Monocytes # 0.8 thou/uL (0.11-0.59) H 12/22/18 06:18 Eosinophils # 0.1 thou/uL (0.0-0.7) 12/22/18 06:18 Basophils # 0.0 thou/uL (0.0-0.2) 12/22/18 06:18 PT 15.8 SEC (12.0-14.7) H 12/22/18 12:03 INR 1.3 12/22/18 12:03 APTT 36.8 SEC (22.9-36.1) H 12/22/18 12:03 Sodium 135 mmol/L (136-145) L 12/22/18 06:18 Potassium 4.5 mmol/L (3.5-5.1) 12/22/18 06:18 Chloride 103 mmol/L (98-107) 12/22/18 06:18 Carbon Dioxide 21 mmol/L (23-31) L 12/22/18 06:18 Anion Gap 16 mmol/L (10-20) 12/22/18 06:18 BUN 80 mg/dL (8.4-25.7) H 12/22/18 06:18 Creatinine 1.83 mg/dL (0.7-1.3) H 12/22/18 06:18 Estimated GFR (MDRD) 36 12/22/18 06:18 Glucose 113 mg/dL (83-110) H 12/22/18 06:18 POC Glucose 121 mg/dL (70-110) H 12/22/18 17:14 Lactic Acid 2.8 mmol/L (0.5-2.2) H 12/21/18 00:06 Calcium 8.9 mg/dL (7.8-10.44) 12/22/18 06:18 Phosphorus 5.2 mg/dL (2.3-4.7) H 12/22/18 06:18 Magnesium 2.5 mg/dL (1.6-2.6) 12/22/18 06:18 Total Bilirubin 0.4 mg/dL (0.2-1.2) 12/22/18 06:18 AST 26 U/L (5-34) 12/22/18 06:18 ALT 10 U/L (8-55) 12/22/18 06:18 Alkaline Phosphatase 96 U/L (40-150) 12/22/18 06:18 B-Natriuretic Peptide 105.9 pg/mL (0-100) H 12/20/18 10:27 Serum Total Protein 5.5 g/dL (5.8-8.1) L 12/22/18 06:18 Albumin 2.6 g/dL (3.4-4.8) L 12/22/18 06:18 Globulin 2.9 g/dL (2.4-3.5) 12/22/18 06:18 Albumin/Globulin Ratio 0.9 g/dL (1.2-2.2) L 12/22/18 06:18 Lipase 76 U/L (8-78) 12/20/18 10:27 Urine Color Yellow (Yellow) 12/20/18 12:23 Urine Clarity Turbid (Clear) A 12/20/18 12:23 Urine pH 5.0 (5.0-9.0) 12/20/18 12:23 Ur Specific [place] 1.019 (1.002-1.036) 12/20/18 12:23 Urine Protein 50 mg/dL (Neg-Trace) A 12/20/18 12:23 Urine Glucose (UA) Normal mg/dL (Negative) 12/20/18 12:23 Urine Ketones Negative mg/dL (Negative) 12/20/18 12:23 Urine Blood 2+ (Negative) A 12/20/18 12:23 Urine Nitrite Negative (Negative) 12/20/18 12:23 Urine Bilirubin Negative (Negative) 12/20/18 12:23 Urine Urobilinogen Normal mg/dL (Less than 2) 12/20/18 12:23 Ur Leukocyte Esterase 25 Hany/uL (Negative) 12/20/18 12:23 Urine RBC Greater than 50 HPF (0-3) A 12/20/18 12:23 Urine WBC 11-20 HPF (0-3) A 12/20/18 12:23 Ur Squamous Epith Cells 0-3 HPF (0-3) 12/20/18 12:23 Urine Bacteria 3+ HPF (None Seen) A 12/20/18 12:23 Hyaline Casts 11-20 LPF (0-3) A 12/20/18 12:23 Urine Sperm Rare HPF (None Seen) A 12/20/18 12:23 Blood Type O POSITIVE 12/20/18 10:27 Antibody Screen NEGATIVE 12/20/18 10:27 - EKG Data Rate: tachycardia - Radiology Interpretation CT scan - abdomen Status: image reviewed by me, report reviewed by me (Large [id number] left abdominal complex mass. Complex fluid, suggestive mesenteric seeding. Calcificated mass in bladder concerning for neoplasm.) Surgery Consult: A/P - Problem (1) Abdominal mass Current Visit: No Code(s): R19.00 - INTRA-ABD AND PELVIC SWELLING, MASS AND LUMP, UNSP SITE Status: Acute Qualifiers: Abdominal location: left lower quadrant Qualified Code(s): R19.04 - Left lower quadrant abdominal swelling, mass and lump - Plan Plan: Pt discussed with Dr Wild, await biopsy results and oncology recommendations. No acute surgical intervention at this time.
--- NOTE | 2018-12-23 00:30 | CON ---
DATE OF CONSULTATION: 12/22/2018 This is an 83-year-old male, I was asked to see today, the December. He is in room 4437. He was admitted on it looks like the 3rd with abdominal pain. The CAT scan was done that I reviewed showed a large mass in the left lower quadrant. He had some cysts from his kidneys. He had a stone in the urinary bladder. I have been asked to see him regarding I think the possibility of a bladder lesion and bladder stone. Did a biopsy of the mass today. 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 I did see him in 2014. At that point, he had come in with gross hematuria and clot retention. He had an enormous prostate. We ended up doing a TURP of 30 some grams of tissue that was just a very small amount of the size of his prostate, we did this just to control hematuria. This was done like in October or December of 2014. There was no cancer. I saw him in the office a couple of times. He is still having some blood in his urine off and on, so we did office cysto and he had 2 bladder stones. This was in April of 2015, and we talked to him about possibly getting rid of those stones, but he at that point did not have anything done and had not come back for followup since we placed him on some finasteride for his large prostate and I do not see that he is still on that. He currently states he has been voiding okay. No dysuria, no hematuria, no retention. His urinalysis during this admission shows over 50 red cells, 11 to 20 white cells, 3+ bacteria. I cannot see that a urine culture was done. His creatinine is 1.8 this morning. It is improving. His hemoglobin is 12.9, his white count is 12.3, coags are normal. Blood cultures negative and I cannot find a urine culture. He had today a biopsy of this left-sided mass that is pending. He also had some GI bleeding when he came in and he has undergone EGD and colonoscopy and I believe this apart from some hemorrhoids was not at all helpful in anything to do this mass except for having some extrinsic compression on the colon. He is a little bit tachycardic. Vital signs are otherwise okay. His abdomen is obese. He has tenderness on the left side, a mass he can feel on the left side, so in regard to his bladder stone, it probably is a bladder stone. He has had bladder stones when I saw him in May 03 and he has not had anything done since, probably just stones that have been there and growing. We will go ahead and make sure urine culture is done, although he is already on Rocephin, at least had received Rocephin when he came into the ER. He does not act like he has urinary tract infection. It would seem unlikely that he would have a bladder mass currently with at least the stones being associated with that. The stones were something he had there years ago and his office system did not show any evidence of bladder cancer, but if need be, we could always do a cysto. I think it probably would depend on what the biopsy of this left lower quadrant mass shows in terms of what other therapies would be available for him in terms of treatment options for what appears to be a significant abdominal process going on. I will follow along with this. Job ID: [id number]
[2018-12-23] MEDS: Lactated Ringer's 1,000 ML IV SCH ×2 (03:27→04:59)
--- NOTE | 2018-12-23 03:30 | PRG ---
DATE OF SERVICE: 12/22/2018 SUBJECTIVE: This is an 83-year-old gentleman with a history of throat cancer, currently undergoing radiation. The patient is positive for a left sided abdominal mass. The patient was admitted by Family Medicine. The patient remains on the medical floor. The patient is sitting up on the side of the bed. The patient voices no complaints at this time. Denies any abdominal pain. Denies any nausea or vomiting. OBJECTIVE: VITAL SIGNS: Afebrile, remains slightly tachycardic. Blood pressure is stable. GENERAL: The patient is awake and alert, in no distress, sitting on the edge of the bed. RESPIRATORY: Symmetrical rise, no work of breathing, no distress. ABDOMEN: Distended, firm, round, nontender. No guarding or rigidity. IMPRESSION: 1. Abdominal mass. 2. Melena. 3. History of throat cancer. PLAN: Await biopsy results and oncology recommendations. No acute surgical intervention at this time. Plan was discussed with the patient and family who agreed. Job ID: [id number]
[2018-12-23 05:32] LABS: #Lymphocytes 0.9 thou/uL (1.20-3.40); #Monocytes 0.7 thou/uL (0.11-0.59); #Neutrophils 12.8 thou/uL (1.40-6.50); %Eosinophils 0.1 % (0.0-10.0); %Lymphocytes 6.3 % (21.0-51.0); %Monocytes 5.1 % (0.0-10.0); %Neutrophils 88.4 % (42.0-75.0); Hemoglobin 13.1 g/dL (14.0-18.0); Mean Corpuscular HGB CONC 31.4 g/dL (32.0-36.0); Mean Corpuscular Hemoglobin 29.1 pg (27.0-31.0); Mean Corpuscular Volume 92.5 fL (78.0-98.0); Mean Platelet Volume 6.7 fL (7.4-10.4); Platelet Count 396 thou/uL (130-400); Red Blood Cell (RBC) Count 4.49 mill/uL (4.70-6.10); White Blood Cell (WBC) Count 14.4 thou/uL (4.8-10.8)
[2018-12-23 05:51] LABS: Phosphorus 6.4 mg/dL (2.3-4.7)
[2018-12-23 05:53] LABS: ALT (SGPT) 7 U/L (8-55); AST (SGOT) 23 U/L (5-34); Albumin 2.6 g/dL (3.4-4.8); Alkaline Phosphatase 97 U/L (40-150); Anion Gap 18 mmol/L (10-20); BUN (Urea Nitrogen) 86 mg/dL (8.4-25.7); Bilirubin, Total 0.4 mg/dL (0.2-1.2); Calc. Creatinine Clearance 29 mL/min (70-130); Calcium 9.1 mg/dL (7.8-10.44); Carbon Dioxide 20 mmol/L (23-31); Chloride 100 mmol/L (98-107); Estimated GFR-MDRD 28; Globulin 2.9 g/dL (2.4-3.5); Glucose 114 mg/dL (83-110); Magnesium 2.6 mg/dL (1.6-2.6); Potassium 5.2 mmol/L (3.5-5.1); Protein, Total 5.5 g/dL (5.8-8.1); Sodium 133 mmol/L (136-145)
--- NOTE | 2018-12-23 06:14 | PDOC.FM ---
- Subjective Subjective: Pt doing well this morning, no acute events overnight. States he is just very thirsty. Will restart diet this morning. No other concerns or complaints. States pain has improved. No return of n/v/d. No CP, SOB, fevers/chills. at bedside, spoke with both of them regarding workup this far and plan to await path results to direct further eval and management. - Objective MAR Reviewed: Yes Vital Signs & Weight: Vital Signs (12 hours) Temp Pulse Resp BP Pulse Ox 12/23/18 04:00 97.8 F 102 H 18 108/71 100 12/23/18 00:00 97.5 F L 105 H 18 102/57 L 92 L 12/22/18 22:45 103 H 98 12/22/18 20:00 98.1 F 108 H 18 146/73 H 92 L Weight Weight 80.286 kg I&O: 12/21/18 12/22/18 12/23/18 06:59 06:59 06:59 Intake Total 360 6350 600 Balance 360 6350 600 Result Diagrams: 12/23/18 04:43 12/23/18 04:43 Phys Exam - Physical Examination Constitutional: NAD HEENT: moist MMs horseness Neck: supple Respiratory: no wheezing, no rales, no rhonchi, clear to auscultation bilateral Cardiovascular: RRR, no rub 3/6 systolic ejection murmur Gastrointestinal: positive bowel sounds Distented. Large, hard mass of left abd. Midly TTP of lower border. Musculoskeletal: no edema, pulses present Neurological: moves all 4 limbs Psychiatric: A&O x 3 Dx/Plan (1) Abdominal mass Code(s): R19.00 - INTRA-ABD AND PELVIC SWELLING, MASS AND LUMP, UNSP SITE Status: Acute Qualifiers: Abdominal location: left lower quadrant Qualified Code(s): R19.04 - Left lower quadrant abdominal swelling, mass and lump (2) LORRIE (acute kidney injury) Code(s): N17.9 - ACUTE KIDNEY FAILURE, UNSPECIFIED Status: Acute (3) Diabetes Code(s): E11.9 - TYPE 2 DIABETES MELLITUS WITHOUT COMPLICATIONS Status: Chronic Qualifiers: Diabetes mellitus type: type 2 Diabetes mellitus group home insulin use: without ferry terminal supervisor use Diabetes mellitus complication status: with neurologic complications Diabetes mellitus complication detail: with polyneuropathy Qualified Code(s): E11.42 - Type 2 diabetes mellitus with diabetic polyneuropathy (4) Melena Code(s): K92.1 - MELENA Status: Resolved (5) Hematochezia Code(s): K92.1 - MELENA Status: Resolved (6) Throat cancer Code(s): 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 1. Large left abdominal mass, mesenteric seeding, and bladder calcification concerning for malignancy - Sxs resolved other than mild LLQ pain on border of mass - Morphine 4mg prn pain and zofran 8mg prn nausea - CT Abd/Pelvis - [id number] left hemiabdominal complex mass, Complex fluid and thickening of mesentery suggesting mesenteric seeding/carcinomatosis. - VSS, Mild Tachycardia but unchanged from admission. Hb stable. - GI consulted, Dr. Estrada, EGD narrowing of GE junction biopsies taken no Barretts. Baltic 5mm polpy - tubular adenoma, extensive compression of colon, internal and external hemorrhoids likely source of hematochezia; appreciate recs - Onc consulted, Dr. Farris, rec continued GI workup and biopsy of mass, will follow along, appreciate recs - Consulted Palliative care for assistance with advance directives and goals of care, appreciate recs - Consulted Gen surg, Dr. Wild who rec IR with CT guided biopsy, awaiting results of biopsy, appreciate recs 2. Bladder mass - CT Abd/Pelvis - Calcification and isodensity within urinary bladder, worrisome for neoplastic process - Urology consulted, Dr. Hammond, likely bladder stone, awaiting CT guided biopsy results, possible cyto in further, apprec recs 3. LORRIE vs CKD III - Cr was 0.82 in 2014, Cr 2.73 -> 1.83 -> 2.26. Cr stable, likely CKD III. May need nephro f/u as OP. - Providing gently hydration with LR @ 120cc/hr. - Mg 2.6, Phos 6.4. EKG normal. - Trend lytes daily 4. Sepsis due to Suspected UTI, resolved - WBC 16 -> 14, LA 3.8 -> 2.8. - UA with 3+ Bacteria and 11-20 WBC. S/p Rocephin 1g q24h x 3d. - No UCx obtained, BCx NGTD. 3. DM II with peripheral neuropathy - Hold home metformin and glimepiride - Diabetic hyperglycemic protocol with Mild SS insulin and ACHS accuchecks. BG stable, will continue to monitor. - Gabapentin 300mg BID for neuropathic pain. Pain much improved. 4. Throat Cancer - Tx by Dr. Nunes. Cancer center notified. Hem/Onc on board, appreciate recs. Diet: Regular VTE: SCDs Code: Full. Disposition/LOS: Pending CT guided biopsy results. Monitor clinical status and renal function. Anticipate hospitalization 3-5days. Addendum - Attending - Attending Attestation Date/Time: 12/23/18 3272 I personally evaluated the patient and discussed the management with Dr. Katherin Garg at 0940. I agree with the History, Examination, Assessment and Plan documented above with any addition or exceptions noted below. Patient c/o abdominal bloating, need to burp. Last bm was 2 days ago. Large abdominal mass- pending pathology Mild hyperkalemia, hyperphosphatemia- will check uric acid to r/o tumor lysis syndrome. Increase IVF to 150 ml per hour. Will discuss with heme/onc LORRIE vs CKD- Cr 2.26 this am. Will increase IVF.
[2018-12-23] MEDS: Gabapentin 300 MG CAP PO SCH ×2 (08:40→21:18)
[2018-12-23] MEDS ORDERED: Simethicone Chewable 80 MG TAB PO PRN (09:53)
[2018-12-23] MEDS ORDERED: Polyethylene Glycol 3350 17 GM Packet PO PRN (09:53)
[2018-12-23] MEDS ORDERED: Lactated Ringer's 1,000 ML IV SCH ×2 (10:00→15:12)
--- NOTE | 2018-12-23 11:50 | PQF ---
REAGAN WHELAN GARRETT, MD *r [id number] CLINICAL DOCUMENTATION IMPROVEMENT CLARIFICATION FORM: ICD-10 Updated PLEASE DO AN ADDENDUM TO THE PROGRESS NOTE WITH ANY DOCUMENTATION UPDATES OR ADDITIONS AND CARRY THROUGH TO DC SUMMARY. THANK YOU. DATE: 12/23/18 ATTN:DR. Katherin THOMPSON Please exercise your independent, professional judgment in responding to the clarification form. Clinical indicators are provided on the bottom of this form for your review. Please check appropriate box(s): [ ] Acute Renal Failure (ARF) / Acute Kidney Injury (LORRIE) [ X] Acute on Chronic Renal Failure please specify Stage of CKD III - likely but unsure of baseline kidney function(see below) [ ] CKD without ARF/LORRIE please specify Stage of CKD [ ] Other diagnosis [ ] Unable to determine In addition, please specify: Present on Admission (POA): [ x ] Yes [ ] No [ ] Unable to determine National Kidney Foundation Guidelines for CKD Staging Stage I Kidney damage with normal or increased GFRGFR > 90 Stage IIKidney damage with mildly decreased GFRGFR 60-89 Stage III Kidney damage with moderately decreased GFRGFR 30-59 Stage IVKidney damage with severely decreased GFRGFR 16-29 Stage VKidney failureGFR<15 ESRDEnd Stage Renal DiseaseOn dialysis Acute Renal Failure/Acute Kidney Failure defined as: Increases in SCr by (>) 0.3 mg/dl within 48 hours OR- Increases in SCr by (>) 1.5 times baseline, known or presumed to have occurred within the prior 7 days OR- Urine volume < 0.5 ml/kg/hour for 6 hours (KDIGO supplement 2012 for RIFLE/COSMO criteria) For continuity of documentation, please document condition throughout progress notes and discharge summary. Thank You. CLINICAL INDICATORS - SIGNS / SYMPTOMS / LABS 12/20 PN ([facility]) DX : 2) LORRIE ACUTE, PLAN: LORRIE VS CKD -CR WAS 0.82 IN 2015, CR 2.73, BUN 88. BUN/CR > 20, LIKELY PRERENAL LORRIE 8/5 PN ([facility]NA) DX : 2) LORRIE, ACUTE; PLAN: 3) LORRIE VS CKD -CR WAS 0.82 IN 2014, CR 2.73 > 1.83. BUN 88. BUN/CR> 20, LIKELY PRERENAL LORRIE. 8/6 PN (DONNA) DX: 2) LORRIE, ACUTE; PLAN: 3) LORRIE VS CKDIII -CR WAS 0.82 IN 2014, CR 2.73> 1.83>2.26. CR STABLE, LIKELY CKD III. MAY NEED NEPHRO F/U OP. TREND LYTES DAILY, PROVIDING GENTLY HYDRATION W LR AT 120CC/ HR. RISK: POSSIBLE BLADDER MASS/METASTASIS (DONNA/ H & P) ADVANCED AGE (83) TREATMENTS: ONCOLOGY CONSULT UROLOGY CONSULT SERIAL LABS CT SCAN THANK YOU! SUZE (This form is maintained as a part of the permanent medical record) 2014 [employer] All Rights Reserved [email or web address] [phone] [email or web address]
--- NOTE | 2018-12-23 12:54 | RAD ---
EXAM: 2 views of the abdomen HISTORY: Abdominal distention COMPARISON: CT abdomen/pelvis 12/20/2018 FINDINGS: 2 views of the abdomen shows a nonspecific, nonobstructive bowel gas pattern. No free air o r air-fluid levels are seen on upright examination. A calcification in the pelvis represents the urinary bladder calcification seen on prior CT.. The bones are unremarkable. IMPRESSION: No evidence of bowel obstruction.
[2018-12-23] MEDS ORDERED: Furosemide 40 MG/4 ML VIAL SLOW IVP SCH (15:15)
[2018-12-23] MEDS ORDERED: Sodium Chloride 0.9% 1,000 ML IV SCH (16:15)
[2018-12-23 16:34] LABS: Anion Gap 18 mmol/L (10-20); BUN (Urea Nitrogen) 88 mg/dL (8.4-25.7); Calc. Creatinine Clearance 28 mL/min (70-130); Calcium 8.8 mg/dL (7.8-10.44); Carbon Dioxide 15 mmol/L (23-31); Chloride 103 mmol/L (98-107); Estimated GFR-MDRD 27; Glucose 129 mg/dL (83-110); Magnesium 2.5 mg/dL (1.6-2.6); Phosphorus 6.1 mg/dL (2.3-4.7); Potassium 5.6 mmol/L (3.5-5.1); Sodium 130 mmol/L (136-145)
--- NOTE | 2018-12-23 16:59 | PRG ---
DATE OF SERVICE: SUBJECTIVE: I have seen Mr. Coleman 83-year-old man who was admitted with progressive abdominal distention and palpable abdominal mass. Percutaneous biopsy was obtained by Interventional Radiology yesterday. Pathology report is pending. This morning, the patient reports slight shortness of breath due to progressive abdominal distention. He reports no nausea, vomiting. He denies any fevers or chills. OBJECTIVE: VITAL SIGNS: Currently include blood pressure 116/74, pulse 103, respiratory rate is 18, temperature 97.4 degrees Fahrenheit, oxygen saturation is 96% on room air. HEART: Reveals regular rate with mild sinus tachycardia. No murmurs or gallops auscultated. LUNGS: Clear to auscultation bilaterally. Breathing, regular and nonlabored. ABDOMEN: Soft, moderately distended, but nontender to palpation. He has percussive waves. Liver and spleen otherwise nonpalpable below costal margin. The patient has a large palpable mid to left lower quadrant abdominal mass. NEUROLOGIC: Reveals no focal deficits present. LABORATORY FINDINGS: Include a CBC with 14,400 white blood cells, hemoglobin and hematocrit 13.1 and 41.6 respectively. Platelet count is 396,000. Metabolic profile; sodium 133, potassium 5.2, chloride is 100, bicarb is 20, BUN is 86, creatinine is 2.26, glucose is 114, uric acid is elevated at 14.4. 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 PLAN: Await report of the biopsy to plan for further surgical interventions. There is no acute surgical indication at this time nevertheless. We will obtain abdominal x-ray to rule out adynamic ileus or any obstructive pattern, which may require nasogastric tube decompression. Above findings and plan discussed with the patient and his family at bedside. They all indicated understanding of information given. I have answered their questions. Job ID: [id number]
--- NOTE | 2018-12-23 22:26 | CON ---
DATE OF CONSULTATION: REASON FOR CONSULT: Abdominal mass. HISTORY OF PRESENT ILLNESS: Mr. Coleman is an 83-year-old gentleman, who is currently undergoing radiation for glottic cancer. He is on day 19. Over the past week, he has been having abdominal discomfort with poor appetite. He has lost approximately 10 pounds. He presented to the emergency room on December [address] of his abdomen and pelvis showed a mixed attenuation mass of the left lower quadrant measuring 15 x 10 cm. This was a noncontrast CT. He also had a left kidney mass that is consistent with cyst. He was evaluated by GI. Endoscopy was unremarkable. He then underwent a needle-guided biopsy of his left lower quadrant mass. Pathology is currently pending. Over the past several days, his kidney function has continued to decline. His potassium phosphorus have increased. He remains weak at bedside with poor appetite. His radiation has been held over the past several days. PAST MEDICAL HISTORY: 1. Diabetes mellitus 2. 2. Glottic cancer. PAST SURGICAL HISTORY: 1. Cholecystectomy. 2. Appendectomy. 3. TURP with prostate resection. 4. Colonoscopy with polypectomy. ALLERGIES: NO KNOWN DRUG ALLERGIES. HOME MEDICATIONS: 1. Glimepiride 2 mg daily. 2. Metformin 1000 mg b.i.d. FAMILY HISTORY: No history of cancer. SOCIAL HISTORY: . Lives in [place] with his . Remote history of smoking. No alcohol or illicit drug use. REVIEW OF SYSTEMS: CONSTITUTIONAL: No fever, chills, or night sweats. EYES: No blurred or double vision. ENT: No pain, hoarseness, or sore throat. Positive for dysphagia. CV: No chest pain, palpitations, or syncope. RESPIRATORY: No shortness of breath, dyspnea on exertion or orthopnea. GI: Positive for loss of appetite. : No dysuria or hematuria. MUSCULOSKELETAL: No joint or back pain. SKIN: No rash or pruritus. HEMATOLOGICAL: No bleeding, bruising, or clotting. NEUROLOGICAL: No numbness, tingling, or seizure activity. PSYCH: No anxiety or depression. PHYSICAL EXAMINATION: VITAL SIGNS: Temperature is 97.4, pulse is 103, respiratory rate 18, BP is 116/74. He is 96% on room air. GENERAL: This is a chronically ill-appearing male, in no acute distress. HEENT: Normocephalic, atraumatic. Pupils are equal and reactive to light. NECK: Supple. CV: Regular rate and rhythm. He has tachycardia. LUNGS: Clear anterior. ABDOMEN: Obese and distended. Mild tenderness with palpation in the left lower quadrant. EXTREMITIES: 1+ bilateral lower extremity edema. SKIN: No rash. HEMATOLOGICAL: No petechiae or purpura. NEUROLOGICAL: Nonfocal. PSYCH: Alert, oriented, and appropriate. PERTINENT LABS AND X-RAYS: Current WBCs are 14.4, hemoglobin 13.1, hematocrit 41.6, platelet count 396,000, 88% neutrophils, 6% lymphocytes. PT is 15.8, INR is 1.3, PTT is 36.8. Sodium is 133, potassium 5.8, chloride 100, CO2 is 20, BUN is 86, creatinine 2.26. Lactic acid 2.8, calcium 9.1, uric acid is 14.4, phosphorus is 6.4, magnesium 2.6, total bilirubin is 0.4, AST is 23, ALT 7, and alkaline phosphatase is 97. Serum total protein is 5.5, albumin 2.6, globulin 2.9. Urine showed 3+ bacteria with a negative nitrite and leukocyte esterase. RADIOLOGY: Per HPI. ASSESSMENT: 1. Large abdominal mass. 2. Glottic cancer. 3. Worsening kidney function. 4. Electrolyte abnormalities concerning for tumor lysis. DISCUSSION: The patient's path remains pending. I spoke with Dr. Davison. Histochemical stains for carcinoma and lymphoma are negative. He is currently being worked up for sarcoma. 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 It is possible that he may have a small cell tumor that is causing TLS. Spoke with Dr. Farris. We have asked Dr. León to see the patient. He has already been started on allopurinol and has been receiving IV fluids. His LDH is currently pending. We will monitor his electrolytes closely and further recommendations for treatment will be based on final path results. Thank you for the consult. Job ID: [id number]
--- NOTE | 2018-12-24 01:20 | CON ---
DATE OF CONSULTATION: 12/23/2018 CONSULTING PHYSICIAN: Rk Garg MD REASON FOR CONSULTATION: Acute kidney injury and uremia. REASON FOR ADMISSION: Abdominal pain and swelling. HISTORY OF PRESENT ILLNESS: This is an 83-year-old male with history of throat cancer, type 2 diabetes, came to the hospital with abdominal swelling and was found to have an abdominal malignancy and is having further workup. He was found to have elevated creatinine and BUN and some confusion this morning. His creatinine on admission was around 2.7. His last creatinine was 0.8 per the chart and his BUN is 88, potassium is 5.6. Nephrology consulted. The patient is very sleepy. but is arousable and able to have a conversation with the family. He is around his daughter and is at the bedside. No chest pain, or palpitation. No nausea, or vomiting reported. He was also given Lasix today. He was on IV fluids, which was cut down. He was on LR. PAST MEDICAL HISTORY: Positive for type 2 diabetes, throat cancer. PAST SURGICAL HISTORY: Cholecystectomy, appendectomy, TURP, prostate resection, and colonoscopy. HOME MEDICATIONS: 1. Glimepiride. 2. Metformin. ALLERGIES: NO KNOWN DRUG ALLERGIES. SOCIAL HISTORY: No smoking, alcohol, or drugs. FAMILY HISTORY: No history of kidney disease. REVIEW OF SYSTEMS: CONSTITUTIONAL: Negative for weight loss or gain, ability to conduct usual activities. SKIN: Negative for rash, itching. EYES: Negative for double vision, pain. ENT/MOUTH: Negative for nose bleeding, neck stiffness, pain, tenderness. CARDIOVASCULAR: Negative for palpitations, dyspnea on exertion, orthopnea. RESPIRATORY: Negative for shortness of breath, wheezing, cough, hemoptysis, fever or night sweats. GASTROINTESTINAL: Negative for poor appetite, abdominal pain, heartburn, nausea, vomiting, constipation, or diarrhea. GENITOURINARY: Negative for urgency, frequency, dysuria, nocturia. MUSCULOSKELETAL: Negative for pain, swelling. NEUROLOGIC/PSYCHIATRIC: Negative for anxiety, depression. ALLERGY/IMMUNOLOGIC: Negative for skin rash, bleeding tendency. PHYSICAL EXAMINATION: GENERAL: This is an elderly male, very lethargic. VITAL SIGNS: Temperature 97.4, pulse 103, respiratory rate 18, blood pressure 116/74. HEENT: Atraumatic, normocephalic. Oral mucosa is moist. NECK: Supple. CV: S1 and S2 heard. Rate and rhythm regular. RESPIRATORY: Clear. GASTROINTESTINAL: Abdomen is distended, soft. MUSCULOSKELETAL: 2+ edema. DERMATOLOGIC: No skin rash. NEUROLOGIC: Somnolent, but arousable. LABORATORY DATA: Hemoglobin 13.1, potassium 5.6, BUN is 88, creatinine is 2.3. ASSESSMENT AND PLAN: 1. Acute kidney injury with possible uremia and early stage uremic encephalopathy. I did have a long discussion with the family regarding the need for dialysis to avoid any worsening of the condition and possibility of uremia causing his altered mentation, but the patient is refusing dialysis at this point. He wants to wait at this point. 2. Hyponatremia, most likely from renal failure. 3. Hyperkalemia. We will change LR to NS. 4. Acidosis, getting worse. 5. Hyperuricemia with possible tumor lysis syndrome. 6. Hyperphosphatemia. 7. Elevated LDH level. 8. Prognosis guarded. The patient is refusing dialysis at this point. We will continue counseling. Repeat labs in the morning and continue close followup. Avoid nephrotoxins at this point and we will change LR to NS due to hyperkalemia. Continue on allopurinol. Renally dose medications and we will follow. Thank you for the consult. Job ID: [id number]
--- NOTE | 2018-12-24 01:52 | PRG ---
DATE OF SERVICE: 12/24/2018 SUBJECTIVE: The patient is currently on the medicine floor. He is the patient we are seeing in consultation for General Surgery. He was admitted for abdominal distention and a palpable abdominal mass. The patient has undergone percutaneous biopsy by Interventional Radiology and we are currently awaiting the pathology report on this. Per report, the patient denies any nausea or vomiting. OBJECTIVE: Vital signs are stable. The patient is afebrile. The patient was asleep at the time of my visit, and I did not wake him again. The nurses report no nausea or vomiting or any new complaints. 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 Plan will be to continue supportive care per the primary team and we will await pathology report and proceed with surgical interventions at that time if needed. Job ID: [id number]
--- NOTE | 2018-12-24 05:43 | PDOC.FM ---
- Subjective Subjective: Yesterday evening, pt was about to be taken to the cancer center for radiation therapy when he was noted to be more lethargic and weak. Noted to be volume- overloaded. IVF were decrease and nephro consulted. Dr. León rec dialysis however pt refused at that time. Spoke with patient this morning and he still wants to await biopsy results before making treatment decisions. Consulted that he was significantly volume overloaded and his kidneys were failing and that dialysis would be his next option. He voiced understanding but still wanted to wait. No fever/chills, n/v/d. Last BM 2 days ago. No return of gas pain and abdominal pain only with movement. - Objective MAR Reviewed: Yes Vital Signs & Weight: Vital Signs (12 hours) Temp Pulse Resp BP Pulse Ox 12/24/18 04:00 97.9 F 107 H 20 111/63 100 12/24/18 00:25 97.5 F L 109 H 20 116/73 97 12/23/18 20:00 98.4 F 112 H 16 113/74 94 L Weight Weight 80.286 kg I&O: 12/22/18 12/23/18 12/24/18 06:59 06:59 06:59 Intake Total 6350 600 Balance 6350 600 Result Diagrams: 12/24/18 06:03 12/24/18 15:26 Phys Exam - Physical Examination Drowsy, ill-appearing, slower to respond horseness Neck: supple Respiratory: no wheezing, no rales, no rhonchi, clear to auscultation bilateral 3-6 systolic ejection murmur, tachycardic Gastrointestinal: positive bowel sounds very distended, + fluid shift, large hard left mass on left 2+ pitting edema to below knees Neurological: non-focal Deviation from normal: Depressed mood, slow to respond Dx/Plan (1) Abdominal mass Code(s): R19.00 - INTRA-ABD AND PELVIC SWELLING, MASS AND LUMP, UNSP SITE Status: Acute Qualifiers: Abdominal location: left lower quadrant Qualified Code(s): R19.04 - Left lower quadrant abdominal swelling, mass and lump (2) Diabetes Code(s): E11.9 - TYPE 2 DIABETES MELLITUS WITHOUT COMPLICATIONS Status: Chronic Qualifiers: Diabetes mellitus type: type 2 Diabetes mellitus squash centre manager insulin use: without fci use Diabetes mellitus complication status: with neurologic complications Diabetes mellitus complication detail: with polyneuropathy Qualified Code(s): E11.42 - Type 2 diabetes mellitus with diabetic polyneuropathy (3) Throat cancer Code(s): C14.0 - MALIGNANT NEOPLASM OF PHARYNX, UNSPECIFIED Status: Chronic (4) Hypermagnesemia Code(s): E83.41 - HYPERMAGNESEMIA Status: Resolved (5) Hyperphosphatemia Code(s): E83.39 - OTHER DISORDERS OF PHOSPHORUS METABOLISM Status: Chronic (6) Renal failure Status: Acute (7) Leukocytosis Code(s): D72.829 - ELEVATED WHITE BLOOD CELL COUNT, UNSPECIFIED Status: Acute - Plan Plan: 83yo male with throat cancer undergoing radiation who presented with melena and hematochezia found to have multiple abdominal and pelvic masses concerning for malignancy. 1. Large left abdominal mass, mesenteric seeding, and bladder calcification concerning for malignancy - Pain appears acutely ill this morning, increased pain with movement. - CT Abd/Pelvis - [id number] left hemiabdominal complex mass, Complex fluid and thickening of mesentery suggesting mesenteric seeding/carcinomatosis. - VSS, Mild Tachycardia. Hb stable. - GI consulted, Dr. Estrada, EGD narrowing of GE junction biopsies - no Amanda' s. [place] 5mm polpy - tubular adenoma, extensive compression of colon, internal and external hemorrhoids likely source of hematochezia; appreciate recs - Onc consulted, Dr. Farris, awaiting biopsy of mass path, appreciate recs - Consulted Palliative care for assistance with advance directives and goals of care, appreciate recs - Consulted Gen surg, Dr. Wild who rec IR with CT guided biopsy, awaiting results of biopsy, KUB negative, non surgical at this time, appreciate recs 2. Uremic encephalopathy - Lethargic and less responsive yesterday evening into this morning - Uric acid 14.4, hyerpmag, hyperkalemia - concern for lumor lysis and heavy tumor burden - Hem/Onc notified, consulted Nephro - Nephro, Dr. León, rec dialysis, pt currently refusing, R/B/A discussed and pt still awaiting biopsy results before making decision, rechecking lytes and changed from LR to NS, appreciate recs - On Allopurinol. Will monitor. 4. Leukocytosis - WBC 15, tachycardia. Remains afebrile. - Concern for SBP or intraabdominal infection. Will start Zosyn and monitor closely. 5. Bladder mass - CT Abd/Pelvis - Calcification and isodensity within urinary bladder, worrisome for neoplastic process - Urology consulted, Dr. Hammond, likely bladder stone, awaiting CT guided biopsy results, possible cyto in further, apprec recs 6. Renal failure, CKD III - Cr was 0.82 in 2015, Cr 2.73 -> 1.83 -> 2.26. Cr stable, likely CKD III. - NS @ 50cc/hr. Mg 2.6, Phos 5.5, Trending - Nephro on board, apprec recs. Possible dialysis 7. Sepsis due to Suspected UTI, resolved - UCx and BCx NGTD, VSS other than mild tachycadia. S/P Rocephin x3d 8. DM II with peripheral neuropathy - Hold home metformin and glimepiride - Diabetic hyperglycemic protocol with Mild SS insulin and ACHS accuchecks. BG stable, will continue to monitor. - Gabapentin 300mg BID for neuropathic pain. Pain much improved. 9. Throat Cancer - Tx by Dr. Nunes. Cancer center notified. Attempted transfer to [facility] for [facility] radiation therapy yesterday, but pt was too weak for transfer. Hem/Onc on board, appreciate recs. Diet: Clear liquids VTE: SCDs Code: Full. Disposition/LOS: Pending CT guided biopsy results. Will discuss with pt need for dialysis again and speak with about goals of care and treatment wishes. Monitor lytes and renal function with possible dialysis. Addendum - Attending - Attending Attestation Date/Time: 12/24/18 060 I personally evaluated the patient and discussed the management with Dr. Katherin Garg. I agree with the History, Examination, Assessment and Plan documented above with any addition or exceptions noted below. Large abdominal mass- awaiting final path. Patient and family do not want to make any decisions regarding dialysis until they have a diagnosis and discussion of prognosis. Appreciate oncology, surgery and nephro recs. 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 Acute renal failure- appreciate nephro Family meeting once pathology results return.
[2018-12-24 06:35] LABS: #Eosinphils 0.1 thou/uL (0.0-0.7); #Lymphocytes 0.8 thou/uL (1.20-3.40); #Monocytes 0.9 thou/uL (0.11-0.59); #Neutrophils 14.1 thou/uL (1.40-6.50); %Eosinophils 0.5 % (0.0-10.0); %Monocytes 5.5 % (0.0-10.0); Hemoglobin 12.4 g/dL (14.0-18.0); Mean Corpuscular HGB CONC 33.6 g/dL (32.0-36.0); Mean Corpuscular Hemoglobin 30.4 pg (27.0-31.0); Mean Corpuscular Volume 90.7 fL (78.0-98.0); Mean Platelet Volume 6.7 fL (7.4-10.4); Platelet Count 368 thou/uL (130-400); RBC Distribution Width 13.1 % (11.5-14.5); Red Blood Cell (RBC) Count 4.08 mill/uL (4.70-6.10); White Blood Cell (WBC) Count 15.9 thou/uL (4.8-10.8)
[2018-12-24 06:37] LABS: Phosphorus 5.5 mg/dL (2.3-4.7)
[2018-12-24 06:47] LABS: ALT (SGPT) 8 U/L (8-55); AST (SGOT) 26 U/L (5-34); Albumin 2.5 g/dL (3.4-4.8); Alkaline Phosphatase 93 U/L (40-150); Anion Gap 18 mmol/L (10-20); BUN (Urea Nitrogen) 95 mg/dL (8.4-25.7); Bilirubin, Total 0.3 mg/dL (0.2-1.2); Calc. Creatinine Clearance 24 mL/min (70-130); Calcium 8.8 mg/dL (7.8-10.44); Carbon Dioxide 17 mmol/L (23-31); Chloride 103 mmol/L (98-107); Estimated GFR-MDRD 23; Globulin 3.1 g/dL (2.4-3.5); Glucose 114 mg/dL (83-110); Magnesium 2.6 mg/dL (1.6-2.6); Potassium 5.3 mmol/L (3.5-5.1); Protein, Total 5.6 g/dL (5.8-8.1); Sodium 133 mmol/L (136-145)
[2018-12-24] MEDS: Allopurinol 300 MG TAB PO SCH (09:29)
[2018-12-24] MEDS: Gabapentin 300 MG CAP PO SCH ×2 (09:29→21:56)
--- NOTE | 2018-12-24 09:49 | PRG ---
DATE OF SERVICE: 12/24/2018 I saw Mr. Coleman today. I came by to see him yesterday, but getting an x-ray of the abdomen, that x-ray showed that he does have the bladder stone that was seen on the CT. His vital signs have been fairly stable. His blood pressure has been good. He is still tachycardic. He has been afebrile. His O2 sats have been good on room air. His white count is 15.9, hemoglobin is 12.4 this morning. His creatinine is 2.65, which is up a little bit from yesterday, 2.6. He is still on Zosyn. Microbiology of the blood shows no growth at 48 hours. Pathology from his CT-guided biopsy is still pending. I talked to the patient again about the bladder stone. We will watch this for the time being and we need to see what the pathology from the abdominal mass is before considering any further urologic investigation. Still seems to be voiding okay. Job ID: [id number]
--- NOTE | 2018-12-24 10:08 | PQF ---
REAGAN WHELAN GARRETT, MD *r [id number] CLINICAL DOCUMENTATION IMPROVEMENT CLARIFICATION FORM: ICD-10 Updated PLEASE DO AN ADDENDUM TO THE PROGRESS NOTE WITH ANY DOCUMENTATION UPDATES OR ADDITIONS AND CARRY THROUGH TO DC SUMMARY. THANK YOU. DATE: 12/24/2018 ATTN:DR. Katherin THOMPSON Please exercise your independent, professional judgment in responding to the clarification form. Clinical indicators are provided on the bottom of this form for your review. Please check appropriate box(s): Uremic Encephalopathy: Type: [ x ] Acute [ ] Subacute [ ] Chronic Etiology : [ ] Hypertensive [ x ] Metabolic [ ] Toxic [ ] Hepatic with Coma [ ] Hepatic w/o Coma [ ] Hypoxic [ ] Septic [ ] Drug induced: [ ] Other diagnosis [ ] Unable to determine In addition, please specify: Present on Admission (POA): [ ] Yes [ x ] No [ ] Unable to determine For continuity of documentation, please document condition throughout progress notes and discharge summary. Thank You. CLINICAL INDICATORS - SIGNS / SYMPTOMS / LABS 12/23 CONSULT (KERVIN) A/P : POSSIBLE KIDNEY INJURY WITH POSSIBLE UREMIA AND EARLY ENCEPHALOPATHY. I DID HAVE A LONG DISCUSSION WITH THE FAMILY REGARDING THE NEED FOR DIALYSIS TO AVOID WORSENING CONDITION AND POSSIBILITY OF UREMIA CAUSING HIS ALTERED MENTATION, BUT THE PATIENT IS REFUSING DIALYSIS AT HIS POINT. 12/24 PN (DONNA) DX: 6). RENAL FAILURE, PLAN: 2) UREMIC ENCEPHALOPATHY -LETHARGIC AND LESS RESPONSIVE YESTERDAY EVENING INTO THIS MORNING, URIC ACID 14.4 RISK: DX ACIDOSIS, GETTING WORSE, HYPONATREMIA, MOST LIKELY FROM RENAL FAILURE ( VASUDEV) TREATMENTS: NEPHROLOGY CONSULT IV FLUIDS THANK YOU! SUZE (This form is maintained as a part of the permanent medical record) 2014 [employer]. All Rights Reserved MEY [email or web address] ([email or web address]) [phone] MTDD
[2018-12-24] MEDS: Morphine 4 MG/ML VIAL SLOW IVP PRN (10:29)
--- NOTE | 2018-12-24 11:19 | PRG ---
DATE OF SERVICE: 12/24/2018 SUBJECTIVE: Patient was seen and examined at bedside and overnight events noted. Patient denies any shortness of breath or chest pain or palpitation. No history of nausea or vomiting or diarrhea or fever or chills or cramps. OBJECTIVE: GENERAL: This is an elderly man, in no apparent distress. VITAL SIGNS: Temperature 98.7, heart rate 109, respiratory rate 19, and blood pressure 122/74. HEENT: Atraumatic, normocephalic. Oral mucosa is moist NECK: Supple. CARDIOVASCULAR: S1, S2 heard. Rate and rhythm regular. RESPIRATORY: Clear to auscultation. GASTROINTESTINAL: Abdomen is soft. MUSCULOSKELETAL: No tenderness. No edema. DERMATOLOGIC: No skin rash. NEUROLOGIC: Alert and awake and oriented X3. No focal neurologic deficits. Moving all the extremities. PSYCHIATRIC: Mood and affect normal. LABORATORY DATA: Potassium 5.3, BUN is 95, and creatinine is 2.7. ASSESSMENT AND PLAN: 1. Acute kidney injury with worsening mental status, slightly better today. Family still continues to refuse to have any plans for dialysis. Awaiting biopsy results and deciding on the future treatment plan. 2. Hyponatremia. 3. Hyperkalemia, stable. 4. Acidosis. 5. Hyperuricemia. 6. Hyperphosphatemia. 7. Prognosis guarded. We will continue counseling dialysis as tolerated. Job ID: [id number]
--- NOTE | 2018-12-24 11:32 | PDOC.MOPN ---
Interval History: Patient sleeping. Family at bedside. All questions answered. - Vital Signs Vital Signs: Vital Signs (12 hours) Temp Pulse Resp BP Pulse Ox 12/24/18 08:00 98 F 109 H 19 122/74 100 12/24/18 04:00 97.9 F 107 H 20 111/63 100 12/24/18 00:25 97.5 F L 109 H 20 116/73 97 Weight Weight 177 lb - Physical Exam General: No acute distress HEENT: Atraumatic Lungs: Clear to auscultation Cardiovascular: Regular rate Abdomen: Other (distended abdomen) Extremities: No edema Skin: No rashes Neurological: Normal speech - Labs Result Diagrams: 12/24/18 06:03 12/24/18 06:03 Lab results: Laboratory Results - last 24 hr 12/24/18 06:03: Phosphorus 5.5 H 12/24/18 06:03: Sodium 133 L, Potassium 5.3 H, Chloride 103, Carbon Dioxide 17 L , Anion Gap 18, BUN 95 H, Creatinine 2.65 H, Estimated GFR (MDRD) 23, Glucose 114 H, Calcium 8.8, Magnesium 2.6, Total Bilirubin 0.3, AST 26, ALT 8, Alkaline Phosphatase 93, Serum Total Protein 5.6 L, Albumin 2.5 L, Globulin 3.1, Albumin/ Globulin Ratio 0.8 L 12/24/18 06:03: WBC 15.9 H, RBC 4.08 L, Hgb 12.4 L, Hct 37.0 L, MCV 90.7, MCH 30.4, MCHC 33.6, RDW 13.1, Plt Count 368, MPV 6.7 L, Neutrophils % 89.0 H, Lymphocytes % 5.0 L, Monocytes % 5.5, Eosinophils % 0.5, Basophils % 0.0, Neutrophils # 14.1 H, Lymphocytes # 0.8 L, Monocytes # 0.9 H, Eosinophils # 0.1 , Basophils # 0.0 12/24/18 03:59: POC Glucose 107 12/23/18 20:25: POC Glucose 127 H 12/23/18 17:03: POC Glucose 150 H 12/23/18 16:03: Sodium 130 L, Potassium 5.6 H, Chloride 103, Carbon Dioxide 15 L , Anion Gap 18, BUN 88 H, Creatinine 2.32 H, Estimated GFR (MDRD) 27, Glucose 129 H, Calcium 8.8, Phosphorus 6.1 H, Magnesium 2.5 12/23/18 16:03: Lactate Dehydrogenase 354 H 12/23/18 14:11: POC Glucose 124 H 12/23/18 11:47: POC Glucose 141 H 12/23/18 05:33: POC Glucose 110 Status: lab reviewed by me - Pathology Pathology: discussed with Dr. Davison, stains negative for lymphoma and carcinoma. Working up for sarcoma. A/P - Problem (1) Renal failure Current Visit: Yes Status: Acute (2) Abdominal mass Current Visit: No Code(s): R19.00 - INTRA-ABD AND PELVIC SWELLING, MASS AND LUMP, UNSP SITE Status: Acute Qualifiers: Abdominal location: left lower quadrant Qualified Code(s): R19.04 - Left lower quadrant abdominal swelling, mass and lump - Plan Plan: Appreciate Nephrology reqs Await final diagnosis
[2018-12-24] MEDS: Piperacillin/Tazobactam 2.25 GM in Sodium Chloride 0.9% 100 ML IVPB SCH ×2 (11:42→17:47)
--- NOTE | 2018-12-24 15:27 | EKG ---
Test Reason : Blood Pressure : / mmHG Vent. Rate : 105 BPM Atrial Rate : 105 BPM P-R Int : 174 ms QRS Dur : 086 ms QT Int : 346 ms P-R-T Axes : 024 024 174 degrees QTc Int : 457 ms Sinus tachycardia Nonspecific T wave abnormality Abnormal ECG When compared with ECG of 21-DEC-2018 09:12, (Unconfirmed) Nonspecific T wave abnormality, worse in Lateral leads Confirmed by MIRIAM NUÑEZ, . SPio (4) on 12/24/2018 3:27:03 PM Referred By: LESLEY Confirmed By:DR. Arianna PINEDA MD
[2018-12-24 16:13] LABS: Anion Gap 16 mmol/L (10-20); BUN (Urea Nitrogen) 98 mg/dL (8.4-25.7); Calc. Creatinine Clearance 23 mL/min (70-130); Carbon Dioxide 19 mmol/L (23-31); Chloride 101 mmol/L (98-107); Estimated GFR-MDRD 21; Glucose 122 mg/dL (83-110); Magnesium 2.7 mg/dL (1.6-2.6); Sodium 131 mmol/L (136-145)
[2018-12-24] MEDS ORDERED: Morphine 2 MG/ML SYRINGE SLOW IVP PRN (17:42)
--- NOTE | 2018-12-24 18:22 | PRG ---
DATE OF SERVICE: 12/24/2018 SUBJECTIVE: Mr. Coleman is an 83-year-old man with a large abdominal mass. He is awake and alert today with the family at bedside. Reports no abdominal pain. He denies any nausea or emesis. Abdomen is still markedly distended. OBJECTIVE: VITAL SIGNS: Today include blood pressure 102/66, pulse 106, respiratory rate is 17, temperature 97.4 degrees Fahrenheit, oxygen saturation 95% on room air. HEART: Regular rate with sinus tachycardia. LUNGS: Clear to auscultation bilaterally. Breathing, regular and nonlabored. ABDOMEN: Soft, markedly distended, but nontender to palpation. The large left-sided abdominal mass remains palpable. Clearly, the patient has no peritoneal signs on examination. LABORATORY FINDINGS: CBC with 15,900 white blood cells, hemoglobin and hematocrit 12.4 and 37.0 respectively, platelet count is 268,000. Metabolic profile; sodium 131, potassium is 5.0, chloride is 101, bicarb 19, BUN 98, creatinine is 2.87, and glucose is 122. Percutaneous biopsy of the large abdominal mass pathology report is still pending at this time. I have discussed with the patient and his family at bedside. I advised them of my suspicion for soft tissue tumor, likely sarcoma. Once the diagnosis is established, we will need to have a conversation with the patient and his family with regard to potential options for treatment versus palliative care. The patient indicates understanding information I provided today and look forward to conference once the pathology report is obtained. Job ID: [id number]
[2018-12-25] MEDS: Piperacillin/Tazobactam 2.25 GM in Sodium Chloride 0.9% 100 ML IVPB SCH ×5 (00:28→23:46)
--- NOTE | 2018-12-25 00:37 | PRG ---
DATE OF SERVICE: 12/25/2018 SUBJECTIVE: The patient is currently on the medicine floor, whom we are seeing in consultation for a large abdominal mass. He has undergone biopsy of this. We are currently awaiting the pathology report. The nurses reports no issues currently. The patient is tolerating a diet of clear liquids, and his pain is controlled. OBJECTIVE: VITAL SIGNS: Stable. The patient is afebrile. GENERAL: The patient is sleeping at the time of my exam. He had not awakened. Again, the nurses report no issues and the day team reports no issues. ASSESSMENT AND PLAN: 1. Abdominal wall mass. 2. Status post biopsy. Plan Fay be to await pathology and discuss surgical interventions and possibilities at that time. Job ID: [id number]
--- NOTE | 2018-12-25 05:39 | PDOC.FM ---
- Subjective Subjective: Pt is more drowsy and lethargic this morning. Will open eyes to verbal stimulate but falls back asleep quickly. Nonverbal, opens eyes and will nod for yes or no questions but slow to respond. Family and pt wishes for dialysis this morning. Hypotensive and tachycardic. Family at bedside state he is more altered this morning. Transferring to [facility]. - Objective MAR Reviewed: Yes Vital Signs & Weight: Vital Signs (12 hours) Temp Pulse Resp BP BP Pulse Ox 12/25/18 02:25 100/64 12/25/18 00:00 97.7 F 108 H 20 94/52 L 92 L 12/24/18 20:00 98.1 F 107 H 20 117/71 92 L Weight Weight 80.286 kg I&O: 12/23/18 12/24/18 12/25/18 06:59 06:59 06:59 Intake Total 600 1370 Balance 600 1370 Result Diagrams: 12/25/18 05:54 12/25/18 05:54 Phys Exam - Physical Examination Drowsy, lethargic, nonverbal, GCS 12-13. Neck: supple Respiratory: no wheezing, no rales, no rhonchi, clear to auscultation bilateral 3-6 systolic ejection mumur, tachycardic Gastrointestinal: positive bowel sounds increased distension, hard left abd mass 2+ pitting edema LE Neurological: moves all 4 limbs nonverbal, GCS 12-13. Will answer with nods. Opens eyes to loud verbal Dx/Plan (1) Abdominal mass Code(s): R19.00 - INTRA-ABD AND PELVIC SWELLING, MASS AND LUMP, UNSP SITE Status: Acute Qualifiers: Abdominal location: left lower quadrant Qualified Code(s): R19.04 - Left lower quadrant abdominal swelling, mass and lump (2) Diabetes Code(s): E11.9 - TYPE 2 DIABETES MELLITUS WITHOUT COMPLICATIONS Status: Chronic Qualifiers: Diabetes mellitus type: type 2 Diabetes mellitus penitentiary insulin use: without penitentiary use Diabetes mellitus complication status: with neurologic complications Diabetes mellitus complication detail: with polyneuropathy Qualified Code(s): E11.42 - Type 2 diabetes mellitus with diabetic polyneuropathy (3) Throat cancer Code(s): C14.0 - MALIGNANT NEOPLASM OF PHARYNX, UNSPECIFIED Status: Chronic (4) Hypermagnesemia Code(s): E83.41 - HYPERMAGNESEMIA Status: Resolved (5) Hyperphosphatemia Code(s): E83.39 - OTHER DISORDERS OF PHOSPHORUS METABOLISM Status: Chronic (6) Renal failure Status: Acute (7) Leukocytosis Code(s): D72.829 - ELEVATED WHITE BLOOD CELL COUNT, UNSPECIFIED Status: Acute - Plan Plan: 83yo male with throat cancer undergoing radiation who presented with melena and hematochezia found to have large abdominal mass with mesenteric seeding concerning for malignancy now appearing now ill and with increased confusion. 1. Large left abdominal mass, mesenteric seeding, and bladder calcification concerning for malignancy - Pt more ill-appearing, increased pain with movement. GSC 12-13, family concerned. Will transfer to [facility]. - CT Abd/Pelvis - [id number] left hemiabdominal complex mass, Complex fluid and thickening of mesentery suggesting mesenteric seeding/carcinomatosis. - Hypotension to 107/70, tachy to 110s. - GI consulted, Dr. Estrada, EGD narrowing of GE junction biopsies - no Amanda' s. [place] 5mm polpy - tubular adenoma, extensive compression of colon, internal and external hemorrhoids likely source of hematochezia; appreciate recs - Underwent CT guided biopsy of mass, awaiting biopsy results. 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 - Onc consulted, Dr. Farris, awaiting biopsy of mass path, appreciate recs - Consulted Palliative care for assistance with advance directives and goals of care, appreciate recs - Consulted Gen surg, Dr. Wild, awaiting results of biopsy, KUB negative, non surgical at this time, plan to place dialysis cath this AM. appreciate recs - Plan to have family discussion with patient once biopsy results are back and options for treatment vs comfort care. Family wants to hold off on any decisions until that time. 2. Possible Uremic encephalopathy - Decreased mentation, drowsy and weak, transferring to [facility] - Uric acid 14.4, hyerpmag, hyperkalemia - concern for heavy tumor burden outgrowing blood supply with necrotic tissue - Hem/Onc notified, consulted Nephro - Nephro, Dr. León, rec dialysis, pt and family wishing for dialysis now. Contacted Dr. León and Dr. Wild this morning for dialysis cath placement and dialysis this AM, apprec recs - On Allopurinol. Will monitor. 4. Leukocytosis - WBC 15-> 17, tachycardia. Remains afebrile. - Concern for SBP or intraabdominal infection. On Zosyn ay 2, will monitor closely. 5. Bladder mass - CT Abd/Pelvis - Calcification and isodensity within urinary bladder, worrisome for neoplastic process - Urology consulted, Dr. Hammond, likely bladder stone, awaiting CT guided biopsy results, possible cyto in further, apprec recs 6. Renal failure, CKD III - Cr was 0.82 in 2014, Cr 2.73 -> 1.83 -> 2.26. Cr stable, likely CKD III. - Saline lock, monitoring lytes. Nephro following, apprec recs. Plan for dialysis today. 7. Sepsis due to Suspected UTI, resolved - UCx and BCx NGTD, VSS other than mild tachycardia. S/P Rocephin x3d 8. DM II with peripheral neuropathy - Hold home metformin and glimepiride - Diabetic hyperglycemic protocol with Mild SS insulin and ACHS accuchecks. BG stable, will continue to monitor. - Holding Gabapentin 300mg due to increased 9. Throat Cancer - Tx by Dr. Nunes. Cancer center notified. Attempted transfer to cancer center for OP radiation therapy, pt was too weak for transfer. Diet: NPO VTE: SCDs Code: Full. Disposition/LOS: Pending CT guided biopsy results. Family discussion with pt once biopsy results back for goals of care and direction of tx. Dialysis today. Transfer to [facility]. Addendum - Attending - Attending Attestation Date/Time: 12/25/18 1160 I personally evaluated the patient and discussed the management with Dr. Katherin Garg at 0945 in am. I agree with the History, Examination, Assessment and Plan documented above with any addition or exceptions noted below. 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 Continue to wait for pathology to have final family discussion about treatment plan. Uremia and BRODY- at the time of my exam patient and his are wanting dialysis so transferred down to [facility] for dialysis catheter. Tumor lysis syndrome- on allopurinol. Tachycardia- hold fluids for now as lungs with crackles at base, worsening abdominal distension and peripheral edema.
[2018-12-25 06:04] LABS: #Lymphocytes 0.9 thou/uL (1.20-3.40); #Monocytes 0.9 thou/uL (0.11-0.59); #Neutrophils 15.4 thou/uL (1.40-6.50); %Basophils 0.1 % (0.0-1.0); %Eosinophils 0.2 % (0.0-10.0); %Lymphocytes 5.1 % (21.0-51.0); %Neutrophils 89.7 % (42.0-75.0); Hemoglobin 12.7 g/dL (14.0-18.0); Mean Corpuscular HGB CONC 33.2 g/dL (32.0-36.0); Mean Corpuscular Hemoglobin 30.4 pg (27.0-31.0); Mean Corpuscular Volume 91.6 fL (78.0-98.0); Mean Platelet Volume 6.7 fL (7.4-10.4); Platelet Count 329 thou/uL (130-400); RBC Distribution Width 13.2 % (11.5-14.5); Red Blood Cell (RBC) Count 4.19 mill/uL (4.70-6.10); White Blood Cell (WBC) Count 17.2 thou/uL (4.8-10.8)
[2018-12-25 06:19] LABS: ALT (SGPT) 10 U/L (8-55); AST (SGOT) 26 U/L (5-34); Albumin 2.5 g/dL (3.4-4.8); Alkaline Phosphatase 94 U/L (40-150); Anion Gap 19 mmol/L (10-20); BUN (Urea Nitrogen) 103 mg/dL (8.4-25.7); Bilirubin, Total 0.4 mg/dL (0.2-1.2); Calc. Creatinine Clearance 20 mL/min (70-130); Calcium 8.9 mg/dL (7.8-10.44); Carbon Dioxide 16 mmol/L (23-31); Chloride 104 mmol/L (98-107); Estimated GFR-MDRD 19; Glucose 101 mg/dL (83-110); Magnesium 2.7 mg/dL (1.6-2.6); Potassium 5.5 mmol/L (3.5-5.1); Protein, Total 5.5 g/dL (5.8-8.1); Sodium 133 mmol/L (136-145)
--- NOTE | 2018-12-25 08:27 | PDOC.MOPN ---
- Vital Signs Vital Signs: Vital Signs (12 hours) Temp Pulse Resp BP BP Pulse Ox 12/25/18 04:00 98.0 F 110 H 20 101/65 100 12/25/18 02:25 100/64 12/25/18 00:00 97.7 F 108 H 20 94/52 L 92 L Weight Weight 177 lb - Labs Result Diagrams: 12/25/18 05:54 12/25/18 05:54 Lab results: Laboratory Results - last 24 hr 12/25/18 05:54: Phosphorus 6.0 H 12/25/18 05:54: Sodium 133 L, Potassium 5.5 H, Chloride 104, Carbon Dioxide 16 L , Anion Gap 19, BUN 103 H, Creatinine 3.18 H, Estimated GFR (MDRD) 19, Glucose 101, Calcium 8.9, Magnesium 2.7 H, Total Bilirubin 0.4, AST 26, ALT 10, Alkaline Phosphatase 94, Serum Total Protein 5.5 L, Albumin 2.5 L, Globulin 3.0 , Albumin/Globulin Ratio 0.8 L 12/25/18 05:54: WBC 17.2 H, RBC 4.19 L, Hgb 12.7 L, Hct 38.4 L, MCV 91.6, MCH 30.4, MCHC 33.2, RDW 13.2, Plt Count 329, MPV 6.7 L, Neutrophils % 89.7 H, Lymphocytes % 5.1 L, Monocytes % 5.0, Eosinophils % 0.2, Basophils % 0.1, Neutrophils # 15.4 H, Lymphocytes # 0.9 L, Monocytes # 0.9 H, Eosinophils # 0.0 , Basophils # 0.0 12/25/18 04:51: POC Glucose 98 12/24/18 20:18: POC Glucose 110 12/24/18 17:53: POC Glucose 110 12/24/18 16:00: POC Glucose 127 H 12/24/18 15:26: Sodium 131 L, Potassium 5.0, Chloride 101, Carbon Dioxide 19 L, Anion Gap 16, BUN 98 H, Creatinine 2.87 H, Estimated GFR (MDRD) 21, Glucose 122 H, Calcium 9.0, Phosphorus 6.0 H, Magnesium 2.7 H 12/24/18 12:02: POC Glucose 118 H A/P - Problem (1) Renal failure Current Visit: Yes Status: Acute (2) Abdominal mass Current Visit: No Code(s): R19.00 - INTRA-ABD AND PELVIC SWELLING, MASS AND LUMP, UNSP SITE Status: Acute Qualifiers: Abdominal location: left lower quadrant Qualified Code(s): R19.04 - Left lower quadrant abdominal swelling, mass and lump
[2018-12-25] MEDS: Allopurinol 300 MG TAB PO SCH (08:35)
[2018-12-25] MEDS: Gabapentin 300 MG CAP PO SCH ×2 (08:40→20:08)
[2018-12-25 10:26] VITALS: BP 104/71
[2018-12-25 11:11] LABS: HBSAB Concentration 2.95 mIU/mL; HBSAg Index 0.29 S/CO (0-0.99); Hep B Core Total Ab Non-Reactive (NonReactive); Hep B Core Total Index 0.09 S/CO (0-0.79); Hep B Surf AB Non-Reactive (NonReactive); Hep B Surf Ag Non-Reactive S/CO (NonReactive); Hep C IgG Ab Non-Reactive (NonReactive); Hep C Index 0.09 S/CO (0-0.79)
--- NOTE | 2018-12-25 11:33 | PRG ---
DATE OF SERVICE: 12/25/2018 SUBJECTIVE: The patient was seen and examined at bedside. The patient remains somnolent with tremors and lethargic. OBJECTIVE: GENERAL: This is an elderly male, somnolent. VITAL SIGNS: Temperature 97.5, pulse 111, respiratory rate 20, and blood pressure 104/71. HEENT: Atraumatic. NECK: Supple. CV: S1 and S2. RESPIRATORY: Clear. GI: Abdomen is distended and most likely tight. Slightly tense. MUSCULOSKELETAL: 2+ edema. DERMATOLOGIC: No skin rash. NEUROLOGIC: LABORATORY DATA: Potassium 5.5, BUN is 103, and creatinine is 3.1. ASSESSMENT AND PLAN: 1. Acute kidney injury with uremia and uremic encephalopathy. Plan is to start on dialysis. Family is agreeable. The patient is very somnolent. 2. Uremia encephalopathy. Plan is to start dialysis. 3. Hyperkalemia. 4. 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 5. Prognosis guarded. Plan is to start on dialysis as tolerated. We will have 2 hours of dialysis. Dialysis order set ordered. We will follow. Job ID: [id number]
--- NOTE | 2018-12-25 12:01 | PDOC.MOPN ---
Interval History: Patient more somnolent, poorly responsive. Transferred to [facility]. They have decided against dialysis. he is more somnolent, hospice is here to discuss with his family - Vital Signs Vital Signs: Vital Signs (12 hours) Temp Pulse Resp BP BP Pulse Ox 12/25/18 10:25 97.5 F L 111 H 20 104/71 99 12/25/18 08:55 97.5 F L 109 H 20 107/76 100 12/25/18 08:32 98.5 F 114 H 19 99/61 99 12/25/18 08:00 100 12/25/18 04:00 98.0 F 110 H 20 101/65 100 12/25/18 02:25 100/64 12/25/18 00:00 97.7 F 108 H 20 94/52 L 92 L Weight Weight 177 lb - Physical Exam General: No acute distress, Other (he is somnolent, not arousable to sternal run ) Lungs: Clear to auscultation Cardiovascular: Regular rate (tachycardia), Other Abdomen: Other (distended and firm) Skin: No rashes Psych/Mental Status: Other (encephalopathic) - Labs Result Diagrams: 12/25/18 05:54 12/25/18 05:54 Lab results: Laboratory Results - last 24 hr 12/25/18 05:54: Phosphorus 6.0 H 12/25/18 05:54: Sodium 133 L, Potassium 5.5 H, Chloride 104, Carbon Dioxide 16 L , Anion Gap 19, BUN 103 H, Creatinine 3.18 H, Estimated GFR (MDRD) 19, Glucose 101, Calcium 8.9, Magnesium 2.7 H, Total Bilirubin 0.4, AST 26, ALT 10, Alkaline Phosphatase 94, Serum Total Protein 5.5 L, Albumin 2.5 L, Globulin 3.0 , Albumin/Globulin Ratio 0.8 L 12/25/18 05:54: WBC 17.2 H, RBC 4.19 L, Hgb 12.7 L, Hct 38.4 L, MCV 91.6, MCH 30.4, MCHC 33.2, RDW 13.2, Plt Count 329, MPV 6.7 L, Neutrophils % 89.7 H, Lymphocytes % 5.1 L, Monocytes % 5.0, Eosinophils % 0.2, Basophils % 0.1, Neutrophils # 15.4 H, Lymphocytes # 0.9 L, Monocytes # 0.9 H, Eosinophils # 0.0 , Basophils # 0.0 12/25/18 04:51: POC Glucose 98 12/24/18 20:18: POC Glucose 110 12/24/18 17:53: POC Glucose 110 12/24/18 16:00: POC Glucose 127 H 12/24/18 15:26: Sodium 131 L, Potassium 5.0, Chloride 101, Carbon Dioxide 19 L, Anion Gap 16, BUN 98 H, Creatinine 2.87 H, Estimated GFR (MDRD) 21, Glucose 122 H, Calcium 9.0, Phosphorus 6.0 H, Magnesium 2.7 H 12/24/18 12:02: POC Glucose 118 H Status: lab reviewed by me - Pathology 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 - Problem (1) Renal failure Current Visit: Yes Status: Acute (2) Abdominal mass Current Visit: No Code(s): R19.00 - INTRA-ABD AND PELVIC SWELLING, MASS AND LUMP, UNSP SITE Status: Acute Qualifiers: Abdominal location: left lower quadrant Qualified Code(s): R19.04 - Left lower quadrant abdominal swelling, mass and lump (3) Leukocytosis Current Visit: Yes Code(s): D72.829 - ELEVATED WHITE BLOOD CELL COUNT, UNSPECIFIED Status: Acute (4) Throat cancer Current Visit: No Code(s): C14.0 - MALIGNANT NEOPLASM OF PHARYNX, UNSPECIFIED Status: Chronic - Plan Plan: we discussed again he is not a candidate for chemo, his family agrees he would not want this. he is a DNR and hospice has been consulted. all of his 's questions were answered. i did tell her they should consider inpatient hospice
[2018-12-25 12:35] LABS: Actual Bicarbonate (HCO3a) 17.2 mEq/L (22-28); Base Excess (BEa) -6.9 mEq/L (-2.0 to +3.0); CO2 Tension 30.8 mmHg (35.0-45.0); Calcium, Ionized 1.22 mmol/L (1.12-1.30); Carboxyhemoglobin (COHb) 1.3 gm% (0.0-3.0); Hemoglobin (Hb) 13.4 g/dL (14.0-18.0); O2 Tension (PaO2) 73.5 mmHg (> 60.0); Potassium - ABG Lab 5.24 mmol/L (3.70-5.30); pH, Arterial 7.37 (7.35-7.45)
[2018-12-25 12:40] LABS: Puncture Site LR
--- NOTE | 2018-12-25 13:35 | PRG ---
DATE OF SERVICE: 12/25/2018 SUBJECTIVE: I am seeing in room B12, he was moved to B12. He was becoming somewhat more somnolent and was going to be dialyzed, I think he has not been dialyzed yet. His pathology from his biopsy of the abdominal mass shows apparently a sarcoma, and Dr. Hutton is talking with the and one of the daughters about not doing dialysis, not further treating this. I have talked with the and the daughter and agreed with them. I saw this patient a few years ago and he was in good health, strong, and fighting, and he is completely different than that now in terms of his performance status. So, they are unlikely to pursue any other therapy, but will likely go home on hospice, then we will not need to deal with any issues related to the urinary tract of the bladder stones. Job ID: [id number]
--- NOTE | 2018-12-25 14:24 | CON ---
DATE OF CONSULTATION: 12/25/2018 HISTORY OF PRESENT ILLNESS: Mr. Coleman is an unfortunate 83-year-old male with throat cancer. He presented with abdominal distention that has appeared over the last 3 to 4 weeks, but really been particularly pronounced last 2 weeks. He is transferred down to the intermediate care unit with a change in mental status. History is obtained from the daughter, the , and a little bit from the patient. It is anticipated that they were going to dialyze him today. His BUN is 103 and his creatinine 3.18. He does not want dialysis. I called the Pathology Department. Abdominal mass biopsy results have just been completed. 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 Family tells me they want supportive care and out on his wishes. They say that he did not want dialysis or chemotherapy and really did not want radiation therapy for his throat cancer. PAST MEDICAL HISTORY: Remarkable for cholecystectomy, appendectomy, and TURP. SOCIAL HISTORY: He is nonsmoker and nondrinker. ALLERGIES: REPORTS NO DRUG ALLERGIES. FAMILY HISTORY: Negative for lung disease in early age. REVIEW OF SYSTEMS: 10 point review of systems completed, otherwise negative. PHYSICAL EXAMINATION: VITAL SIGNS: Afebrile, heart rate is 111, respiratory rate is 20, oximetry is 99, and blood pressure 104/71. GENERAL: He appears younger than his age. HEENT: His pupils are equal. Sclerae are anicteric. Extraocular movements appear full. NECK: Without lymphadenopathy. LUNGS: Clear. HEART: Regular rhythm. ABDOMEN: Remarkable for a very large mass in his left abdomen that takes up almost all of his left abdomen. EXTREMITIES: Without clubbing, cyanosis, or edema. LABORATORY DATA: Sodium 133, potassium 5.5, chloride 104, bicarb 16, BUN 103, and creatinine 3.18. White count 17.2, hemoglobin 12.7, and platelets 329. Blood gases ordered by me, pH of 7.37, CO2 of 30, and pO2 of 73. IMPRESSION: 1. High-grade sarcoma. 2. Advanced renal failure. 3. Head and neck cancer. 4. Deconditioning. PLAN: He does not want dialysis. He does not want chemo. He did not want radiation according to the daughter, but they talked him into it, but I see no reason to move forward with dialysis. Family wishes are for comfort care. I have called Palliative Care and they will be happy to see him today. DNR has been entered in the computer. Dialysis will be canceled. This is a 70 minute consult, with greater than 50% of time spent on unit coordinating care. Job ID: [id number] MTDD
[2018-12-25] MEDS: Morphine 2 MG/ML SYRINGE SLOW IVP PRN (23:31)
--- NOTE | 2018-12-26 00:14 | PRG ---
DATE OF SERVICE: 12/26/2018 The patient currently in [facility]. He is a patient we are seeing in consultation for a large abdominal mass. The patient underwent biopsy, which returned as Dr. Wild suspected of a sarcoma. We have been informed that the family is declining aggressive treatment and has opted for comfort measures for the patient. This is definitely reasonable with the patient's state of health and age. At this time, there is no surgical intervention indicated and we will sign off at this time. Job ID: [id number]
[2018-12-26 04:20] LABS: #Lymphocytes 0.8 thou/uL (1.20-3.40); #Monocytes 0.7 thou/uL (0.11-0.59); #Neutrophils 14.6 thou/uL (1.40-6.50); %Eosinophils 0.2 % (0.0-10.0); %Lymphocytes 5.2 % (21.0-51.0); %Monocytes 4.1 % (0.0-10.0); %Neutrophils 90.6 % (42.0-75.0); Mean Corpuscular HGB CONC 32.6 g/dL (32.0-36.0); Mean Platelet Volume 6.8 fL (7.4-10.4); Platelet Count 338 thou/uL (130-400); RBC Distribution Width 13.7 % (11.5-14.5); Red Blood Cell (RBC) Count 4.32 mill/uL (4.70-6.10); White Blood Cell (WBC) Count 16.1 thou/uL (4.8-10.8)
[2018-12-26 04:44] LABS: ALT (SGPT) 7 U/L (8-55); AST (SGOT) 30 U/L (5-34); Albumin 2.5 g/dL (3.4-4.8); Alkaline Phosphatase 93 U/L (40-150); Anion Gap 20 mmol/L (10-20); BUN (Urea Nitrogen) 119 mg/dL (8.4-25.7); Bilirubin, Total 0.4 mg/dL (0.2-1.2); Calc. Creatinine Clearance 17 mL/min (70-130); Calcium 9.3 mg/dL (7.8-10.44); Carbon Dioxide 18 mmol/L (23-31); Chloride 103 mmol/L (98-107); Estimated GFR-MDRD 15; Globulin 3.1 g/dL (2.4-3.5); Glucose 86 mg/dL (83-110); Magnesium 2.8 mg/dL (1.6-2.6); Potassium 5.6 mmol/L (3.5-5.1); Protein, Total 5.6 g/dL (5.8-8.1); Sodium 135 mmol/L (136-145)
--- NOTE | 2018-12-26 05:49 | PDOC.FM ---
- Subjective Subjective: Pt stable this morning. Pt and family pursuing hospice, likely inpatient, care. Awaiting placement. Complaining of increased back pain this morning, no n/v. No fevers/chills. He is quite, but will nod yes or no to questions. No acute events overnight. - Objective MAR Reviewed: Yes Vital Signs & Weight: Vital Signs (12 hours) Temp Pulse Ox 12/26/18 03:27 97.1 F L 12/25/18 23:25 97.3 F L 12/25/18 20:00 100 Weight Weight 80.286 kg Most Recent Monitor Data Heart Rate from ECG 107 NIBP 100/54 NIBP BP-Mean 69 Respiration from ECG 15 SpO2 99 I&O: 12/24/18 12/25/18 12/26/18 06:59 06:59 06:59 Intake Total 1370 100 Balance 1370 100 Result Diagrams: 12/26/18 03:54 12/26/18 03:54 Phys Exam - Physical Examination ill-appearing, weak, tired, nonverbal but will answer with nods Neck: supple Respiratory: no wheezing, no rales, no rhonchi, clear to auscultation bilateral Cardiovascular: RRR, no rub 3/6 systolic ejection murmur Gastrointestinal: positive bowel sounds large left abd mass, distented, mildly TTP lower boarder of mass 1+ pitting edems BL LE to knees Neurological: non-focal Dx/Plan (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 - MALIGNANT NEOPLASM OF CONNECTIVE AND SOFT TISSUE, UNSP Status : Acute (2) Abdominal mass Code(s): R19.00 - INTRA-ABD AND PELVIC SWELLING, MASS AND LUMP, UNSP SITE Status: Acute Qualifiers: Abdominal location: left lower quadrant Qualified Code(s): R19.04 - Left lower quadrant abdominal swelling, mass and lump (3) Diabetes Code(s): E11.9 - TYPE 2 DIABETES MELLITUS WITHOUT COMPLICATIONS Status: Chronic Qualifiers: Diabetes mellitus type: type 2 Diabetes mellitus assisted insulin use: without assisted use Diabetes mellitus complication status: with neurologic complications Diabetes mellitus complication detail: with polyneuropathy Qualified Code(s): E11.42 - Type 2 diabetes mellitus with diabetic polyneuropathy (4) Throat cancer Code(s): C14.0 - MALIGNANT NEOPLASM OF PHARYNX, UNSPECIFIED Status: Chronic (5) Hypermagnesemia Code(s): E83.41 - HYPERMAGNESEMIA Status: Chronic (6) Hyperphosphatemia Code(s): E83.39 - OTHER DISORDERS OF PHOSPHORUS METABOLISM Status: Chronic (7) Renal failure Status: Acute (8) Leukocytosis Code(s): D72.829 - ELEVATED WHITE BLOOD CELL COUNT, UNSPECIFIED Status: Acute - Plan Plan: 83yo male with throat cancer undergoing radiation who presented with melena and hematochezia found to have large abdominal wall high grade sarcoma, 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 - GI consulted, Dr. Estrada, EGD narrowing of GE junction biopsies - no Amanda' s. 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 Farris, has recommended inpatient hospice, apprec recs - Consulted Palliative care and Hospice for assistance with placement, appreciate recs - Consulted Gen surg, Dr. Wild, rec hospice, has signed off, appreciate recs and assistance - Family and pt have decided to decline dialysis and are pursuing hospice, have been consulted, apprec assistance. - prn morphine and comfort measures. 2. Elevated electrolytes, uric acid - Decreased mentation, drowsy and weak, in IMCU, somewhat more alert this morning, possible component of uremic encephalopathy that has resolved - Uric acid 14.4, hyerpmag, hyperkalemia - concern for heavy tumor burden outgrowing blood supply with necrotic tissue. On allopurinol. - Nephro, Dr. León, rec dialysis, pt have decided to decline dialysis and pursue hospice care, apprec recs 4. Leukocytosis - WBC 15-> 17, tachycardia. Remains afebrile, no acute s/s of infection. - On Zosyn ay 3, will d/c antibiotics today. 5. Bladder mass - CT Abd/Pelvis - Calcification and isodensity within urinary bladder, worrisome for neoplastic process - Urology consulted, Dr. Hammond, likely bladder stone, pt is now hospice so no further workup will be pursued, apprec recs. 6. Renal failure, CKD III - Cr was 0.82 in 2015, Cr 2.73 -> 3.90. Cr stable, renal failure worsening - Family decline dialysis, pursing hospice at this time 7. Sepsis due to Suspected UTI, resolved - UCx and BCx NGTD, VSS other than mild tachycardia. S/P Rocephin x3d 8. DM II with peripheral neuropathy - Hold home metformin and glimepiride - Diabetic hyperglycemic protocol with Mild SS insulin and ACHS accuchecks. BG stable, will continue to monitor. - Continue Gabapentin 300mg BID 9. Throat Cancer - Tx by Dr. Nunes. Cancer center notified of pt.. Diet: Regular VTE: SCDs Code: Full. Disposition/LOS: Pt to [facility]. Consulted. Awaiting placement. Addendum - Attending - Attending Attestation Date/Time: 12/26/18 [id number] I personally evaluated the patient and discussed the management with Dr. Katherin Garg. I agree with the History, Examination, Assessment and Plan documented above with any addition or exceptions noted below. 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 Patient and family have decided home with hospice is best treatment plan. Details to be set up today and will d/c home.
[2018-12-26] MEDS: Piperacillin/Tazobactam 2.25 GM in Sodium Chloride 0.9% 100 ML IVPB SCH (06:09)
[2018-12-26] MEDS: Gabapentin 300 MG CAP PO SCH (07:46)
[2018-12-26] MEDS: Allopurinol 300 MG TAB PO SCH (07:46)
[2018-12-26] MEDS: Morphine 2 MG/ML SYRINGE SLOW IVP PRN ×2 (07:46→16:07)
--- NOTE | 2018-12-26 11:18 | PRG ---
DATE OF SERVICE: 12/26/2018 SUBJECTIVE: The patient was seen and examined at bedside and very somnolent and no family at the bedside. OBJECTIVE: GENERAL: This is an elderly male, somnolent. VITAL SIGNS: Temperature 97.9, pulse 104, respiratory rate 18, blood pressure 103/63. CVS: S1 and S2. RESPIRATORY: Clear. GI: Distended and tense. MUSCULOSKELETAL: 2+ edema. NEUROLOGICAL: Somnolent. LABORATORY DATA: BUN is 119, creatinine is 3.9. ASSESSMENT AND PLAN: 1. Acute kidney injury with uremic encephalopathy. Family refused to have dialysis and pursuing hospice. 2. Hyperkalemia. 3. Uremic encephalopathy, getting worse. 4. Acidosis. 5. Overall prognosis is poor and family pursuing hospice and decided not to have dialysis. I will sign off. Please call back with any questions. Job ID: [id number]
[2018-12-26 15:02] VITALS: TEMP 97.7
--- NOTE | 2018-12-28 23:25 | DIS ---
DATE OF ADMISSION: 12/20/2018 DATE OF DISCHARGE: 12/26/2018 RESIDENT: Rk Garg MD ADMITTING ATTENDING: Doe Zimmer MD DISCHARGE ATTENDING: Any Hancock MD. CONSULTS: 1. Gastroenterology, Dr. Guy. 2. General Surgery, Dr. Wild. 3. Nephrology, Dr. León. 4. Oncology, Dr. Farris. 5. Pulmonology, Dr. Hutton. 6. Urology, Dr. Hammond. 7. Hospice. 8. Palliative care. PROCEDURES: 1. CT abdomen pelvis on 12/20/2018-complex mass in the left niurka-abdomen of uncertain etiology, with complex fluid and thickening of the mesentery suggesting mesenteric seeding/mesenteric carcinomatosis. Calcification and isodensity within the urinary bladder, worrisome for neoplastic process. 2. EGD with biopsy and colonoscopy with polypectomy on 12/21/2018-mild hyperemia and mild luminal narrowing in the distal esophagus concerning for reflux disease. Otherwise normal upper endoscopy. Colonoscopy demonstrated 5 mm ascending colon polyp with subsequent polypectomy. Mild luminal narrowing at 40-50 cm past the anal verge consistent with extrinsic compression of the colon. Medium-sized internal hemorrhoids and large external hemorrhoids with evidence of rectal bleeding. 3. Esophageal biopsy-unremarkable esophagogastric junctional mucosa. No Amanda 's columnar epithelium identified. 4. Large intestine ascending polyp-tubular adenoma. 5. CT-guided biopsy of left abdominal mass on 12/22/2018, by Dr. Jones. 6. Pathology of left abdominal mass-high grade sarcomatous neoplasm with extensive necrosis. Poorly differentiated neoplasm with markedly atypical cells and extensive necrosis. Numerous immunohistochemical stains were performed. The tumor cells only showing significant reactivity to h-Caldesmon and vimentin. H-Caldesmon is a fairly good marker for smooth muscle origin while vimentin is a nonspecific stain that has been seen in many different malignancies. Markers for carcinoma and hemopoietic neoplasms negative. Overall findings favor high-grade leiomyosarcoma, although other high-grade sarcomas cannot be ruled out. 7. Abdominal x-ray on 12/23/2018-no evidence of bowel obstruction. 8. Blood cultures from 12/20/2018-no growth, final. PRIMARY DIAGNOSES: 1. 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 2. Bladder mass. 3. Renal failure. SECONDARY DIAGNOSES: 1. Type 2 diabetes with peripheral neuropathy. 2. Throat cancer. DISCHARGE MEDICATIONS: 1. Pantoprazole 40 mg p.o. daily. 2. Gabapentin 300 mg p.o. b.i.d. 3. Allopurinol 300 mg p.o. daily. 4. Metformin 1000 mg p.o. b.i.d. DISCONTINUED MEDICATION: Glimepiride 2 mg p.o. q.a.m. HISTORY OF PRESENT ILLNESS AND HOSPITAL COURSE: Mr. Johnson is an 83-year-old gentleman with a history of throat cancer and type 2 diabetes, who presented with chief complaint of rectal bleeding, abdominal pain for one day duration. He reported having bloody stools the day prior to admission with a mix of dark red and bright red blood in the stool. He also endorsed bright red blood on the toilet paper with wiping. He has had associated diarrhea over the past 24 hours and episodes of nausea. He endorsed a burning pain in the rectum with defecation as well as a constant left lower quadrant suprapubic pain. He has had decreased p.o. intake due to his radiation for his throat cancer, but this has been markedly increased over the past few days. He denies any chest pain, shortness of breath , or urinary symptoms. He is followed by Dr. uNnes for his radiation for his throat cancer and is currently on day 19 of radiation when he presented. In the emergency department, he was initially afebrile, but tachy to 114. His heart rate improved with 1 L normal saline bolus. He was given morphine for the pain and Zofran for his nausea, and blood cultures and urine cultures were drawn. Abdominal CT noted findings as per above and physical exam demonstrated a large left abdominal mass occupying most of the left upper and lower quadrants, it was tender along the lower border. Initial lab work showed a creatinine of 2.73. He was then admitted to the floor for further evaluation and management. From the emergency department, Gastroenterology was consulted due to the concern of blood per rectum and large left abdominal mass. His vital signs and hemoglobin were trended and remained stable. On the day after admission, GI performed a colonoscopy and EGD with findings per above. It was determined that the bleeding was likely due to his hemorrhoids. However, the mass was outside of the colon and further workup was warranted. General Surgery was consulted who recommended a CT-guided biopsy of the mass prior to any surgical intervention. Urology was consulted due to the concerning bladder mass, recommended CT-guided biopsy of the abdominal mass to follow up with a cystoscopy if needed. Dr. Farris with Medical Oncology was consulted, who again recommended biopsy of the mass prior to any further recommendations. Dr. Jones with Interventional Radiology was contacted who performed a CT-guided biopsy of the mass. Upon waiting for the pathology results of the mass, the patient was monitored closely. Throughout the first few days of hospitalization, his renal function did improve slightly with gentle IV hydration and electrolytes were replaced per protocol. On day #3 of hospitalization, the patient began to appear more drowsy and disoriented with increased abdominal distention and lower extremity edema. Dr. León with Nephrology was consulted to evaluate the patient for urgent dialysis due to his worsening electrolytes such as hyperkalemia, hypomagnesemia, hypophosphatemia, and increased volume overload. The patient's IV fluid was stopped and he was monitored closely. Initial discussion with the family and the patient, stated that they did not want to pursue dialysis at that time and were waiting for the pathology results before making any decisions on further interventions including dialysis. He was noted to have elevated uric acid and mild leukocytosis. It was then decided to start the patient on Zosyn for the concern of intraabdominal infections. The patient remained afebrile and vitals relatively stable other than a mild tachycardia throughout the hospitalization. His pain was treated with p.r.n. morphine and his nausea with p.r.n. Zofran. Pathology was contacted prior to final results of the biopsy and stated that the mass was poorly differentiated neoplasm, however, most likely was leiomyosarcoma. These pathology results were discussed with the consultants. On the day prior to discharge, the patient began to look acutely ill with increased work of breathing, decreased mentation, and worsening renal function. It was decided the patient should be transferred to the [facility] for closer management and possible emergent dialysis. At that time, the patient and family did state that they would like to pursue dialysis. The patient was then transferred to the [facility]. In the meantime, the pathology results did come back and Dr. Hutton with Pulmonology and Dr. Wild with surgery were notified and spoke with family at length at bedside. At that point, family decided that they would like to pursue hospice care due to the poor prognosis of this tumor and his acute decline over the last week. It was then decided to not pursue dialysis and Hospice was consulted as well as Palliative Care to arrange home hospice for the patient. The patient's symptoms were treated with p.r.n. medications and gabapentin was added for his peripheral neuropathy that dramatically improved the symptoms. The patient's renal function continued to decline throughout the last part of his hospitalization and prognosis was discussed with family at bedside. At the time of discharge, the patient was alert and coherent. He would open his eyes to verbal stimulus and not to answer questions, but was for the most part nonverbal. He appeared ill, but stable. His vital signs were stable and it was determined that antibiotics could be discontinued. Consultants came by and discussed therapies on hospice with the patient and family at bedside. Primary team had a long discussion with the and daughters regarding his prognosis and goals of care. Again, it was decided by the patient and family that they would pursue hospice and will be discharged home as soon as possible. Discharge plan was discussed with family and the patient at bedside and they voiced agreement and understanding to be discharged home. The patient's code status was changed from full to DNR/DNI and hospice was arranged per family wishes. The patient was then discharged home with home hospice. DISPOSITION: Stable. DISCHARGE INSTRUCTIONS: 1. Location: Home with home hospice. 2. Diet: Regular as tolerated. 3. Activity: As tolerated. 4. Followup: The patient will be discharged home with home hospice, follow up with PCP as directed. Job ID: [id number] MTDDeonte
--- NOTE | 2018-12-29 18:17 | EKG ---
Test Reason : Blood Pressure : / mmHG Vent. Rate : 101 BPM Atrial Rate : 101 BPM P-R Int : 160 ms QRS Dur : 090 ms QT Int : 356 ms P-R-T Axes : 032 040 106 degrees QTc Int : 461 ms Poor data quality, interpretation may be adversely affected Sinus tachycardia Nonspecific T wave abnormality Abnormal ECG No previous ECGs available Confirmed by MICH FUNES (2) on 12/29/2018 6:17:36 PM Referred By: Confirmed By:MICH FUNES
== END 2018-12-26 16:55 | disposition hospice, home (50) | DRG 374 ==
LOC: ERS 10:08 → T4-B 12:44 → IMCU/EMU 12-25 11:10
PROVIDERS: ADMIT Family Medicine; ATTEND Family Medicine
PROC: 0DB38ZX Excision of Lower Esophagus, Via Natural or Artificial Opening Endoscopic, Diagnostic (ICD-10-PCS; principal; 2018-12-21)
PROC: 0D5K8ZZ Destruction of Ascending Colon, Via Natural or Artificial Opening Endoscopic (ICD-10-PCS; 2018-12-21)
PROC: 0WBH3ZX Excision of Retroperitoneum, Percutaneous Approach, Diagnostic (ICD-10-PCS; 2018-12-22)
DX: C78.6 Secondary malignant neoplasm of retroperitoneum and peritoneum (principal); A41.9 Sepsis, unspecified organism; G93.41 Metabolic encephalopathy; E88.3 Tumor lysis syndrome; K92.1 Melena; N17.9 Acute kidney failure, unspecified; N39.0 Urinary tract infection, site not specified; E87.1 Hypo-osmolality and hyponatremia; E87.2 Acidosis; Z66 Do not resuscitate; C14.0 Malignant neoplasm of pharynx, unspecified; R35.0 Frequency of micturition; E11.42 Type 2 diabetes mellitus with diabetic polyneuropathy; N40.1 Benign prostatic hyperplasia with lower urinary tract symptoms; E83.41 Hypermagnesemia; E83.39 Other disorders of phosphorus metabolism; N18.3 Chronic kidney disease, stage 3 (moderate); E87.5 Hyperkalemia; I12.9 Hypertensive chronic kidney disease with stage 1 through stage 4 chronic kidney disease, or unspecified chronic kidney disease; K64.4 Residual hemorrhoidal skin tags; K64.8 Other hemorrhoids; E11.22 Type 2 diabetes mellitus with diabetic chronic kidney disease; K22.2 Esophageal obstruction; Z79.84 Long term (current) use of oral hypoglycemic drugs; Z90.49 Acquired absence of other specified parts of digestive tract
CPT/HCPCS: 36415; 36416; 49180; 74019; 74176; 77012; 77336; 77412; 80053; 81003; 81015; 82805; 83605; 83615; 83690; 83735; 83880; 84100; 84550; 85025; 85610; 85730; 86704; 86706; 86803; 86850; 86900; 86901; 87040; 87340; 88305; 88312; 88313; 88333; 88341; 88342; 93005; 93010; 96361; 96374; 96375; 96376; J0696; J1940; J2001; J2250; J2270; J2405; J2543; J2704; J3010; J3490